=== PATIENT | male | born 1955 | race Caucasian/White ===

== ENCOUNTER 2018-11-04 12:15 | Outpatient (RCR) | payer MEDICARE, SELFPAY ==
--- NOTE | 2018-08-13 16:50 | PT.OPPOC ---
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) Other abnormalities of gait and mobility (08/13/18) Provider Visit Care Team Role Provider Type Win Ho Attending Provider Non-Staff Primary Care Provider Specialty: Psychiatry Address: [address] [place] [address], [place], [place], [facility] Email: Plan Of Care PT-OP-T Assessment and Plan Start: 08/13/18 16:19 Freq: Status: Active Protocol: Document 08/13/18 16:23 [email or web address] (Rec: 08/13/18 16:51 EA [id number]) Physical Therapy Assessment Rehab Potential Rehabilitation Potential Fair Evaluation Complexity Number of Personal Factors/Comorbidities 1-2 Number of Body Systems Impaired 3 Clinical Presentation at Evaluation Evolving Impairments Impairments Activity Tolerance Balance Coordination Gait Other Concerns Fall Risk Yes Goals Four Impairment Impaired TUG (> 10 seconds) Animal Cruelty Investigation Supervisor Goal (LTG) TUG <10 seconds LTG Duration 4 wks Three Impairment Impaired single leg balance Residential Goal (LTG) Patient will perform SLS more than 3 seconds to improve functional gait. LTG Duration 5 wks Two Impairment Impaired balance with multiple falls Residential Goal (LTG) Patient will have no report of fall LTG Duration 4 wks One Impairment Impaired Gait Animal Cruelty Investigation Supervisor Goal (LTG) Patient will ambulate with no AD NBOS LTG Duration 6 wks Assessment Summary Assessment 63 y/o M patient with a referring who is s/p ventricular shunt 09/2016 secondary to normal pressure hydrocephalus. Today patient presented with gait abnormality and standing balance difficulty. Functional assessment reveals moderate risk for fall. MMT and ROM in both UE/LE's are WFL. Sensory and DTR's reveals normal. Coordination tests reveals minimal impairment to both UE/LE's including minimal signs of distance overshooting. Gait with head turning has obvious limitation when turning to the right. Due to abovementioned dysfunction, patient is limited with all activities that require dynamic mobility. In my professional opinion, patient would benefit with skilled PT to improve gait including dynamic standing mobility. Physical Therapy Plan Frequency and Duration Frequency of Treatment 2x/Week Duration of Treatment 12 wks Plan of Care Start Date 08/13/18 Plan of Care End Date 11/05/18 Therapeutic Interventions Therapeutic Interventions Balance Training Coordination Training Gait Training Home Exercise Program Neuromuscular Re-education Patient/Caregiver Education Self-Care/Home Management Therapeutic Exercises Next Visit Focus/Plan Next Note Type Treatment Note Next Visit Plan Begin with coordination exercises, tandem balance exercises, narrow base gait training Plan of Care Dates Plan of Care Start Date 08/13/18 Plan of Care End Date 11/05/18 Please Sign and Return: I have reviewed this Plan of Care and certify that the skilled therapy services above are required to meet the patient?s needs. Physician Signature Date Printed Name and Credentials Clinical Instructor Signature Printed Name and Credentials
--- NOTE | 2018-08-13 16:50 | PT.OIE ---
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) Other abnormalities of gait and mobility (08/13/18) Provider Visit Care Team Role Provider Type Win Ho Attending Provider Non-Staff Primary Care Provider Specialty: Psychiatry Address: [address] [place] [address], [id number] Email: Physical Therapy Initial Evaluation PT-OP-A Visit Information Start: 08/13/18 16:19 Freq: Status: Active Protocol: Document 08/13/18 16:23 EA (Rec: 08/13/18 16:51 EA [id number]) Out-Patient Physical Therapy Visit Information Visit Information Visit Type Initial Evaluation Visit Start Time 12:15 Visit Stop Time 13:00 Total Visit Minutes 40 Visit Number 1 Evaluation Information Evaluation Date 08/13/18 Precautions Precautions Fall risk PT-OP-B Current Condition Start: 08/13/18 16:19 Freq: Status: Active Protocol: Document 08/13/18 16:23 EA (Rec: 08/13/18 16:51 EA [id number]) Current Condition History of Current Condition Onset Date s/p ventricular shunt 2016 due to NPH Current Complaints Gait difficulty due to LOB History of Current Condition Present complaint of gait difficulty and balance started 3 years ago with no previous history of TBI. 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 Prior to current condition, patient lives with his in a single story house with 2 stairs to get in. 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 Patient symptoms of gait disturbance and frequent falls came out gradually and that prompted patient to see his specialist. After ventrular shunt surgery in 09/2016, patient reports his gait is much improved until to this date. 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 Prior Treatments and Tests 2017: Ventricular shunt Future Testing and Treatments Planned Back to Neurologist in three months from today's date Treatment Goals Patient/Caregiver Goals Patient would like to improve his gait. 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 Functional Limitations- Mobility/Gait Limited to < 10 mins due to exhaustion. Ferquent falls with no severe injury Functional Limitations- Work/School Limitations with standing and walking activities Functional Limitations- Recreation/ None identified Hobbies PT-OP-C Subjective Start: 08/13/18 16:19 Freq: Status: Active Protocol: Document 08/13/18 16:23 EA (Rec: 08/13/18 16:51 EA [id number]) OP-PT Subjective Patient Comments Patient Comments Patient would like to improve his gait. Patient Reported Progress Same PT-OP-D Balance Start: 08/13/18 16:19 Freq: Status: Active Protocol: Document 08/13/18 16:55 EA (Rec: 08/13/18 16:59 EA [id number]) OP-PT Balance Assessment Sitting Balance Static Sitting Balance Ability Normal Dynamic Sitting Balance Ability Normal Standing Balance Static Standing Balance Ability Normal Dynamic Standing Balance Ability Good Mora Fall Scale Copyright Permission Abby BOB, Abby RM, Guillermina SJ. Development of a scale to identify the fall- prone patient. Can J Aging 1989;8;366-7. Tyshawn Mora (2009). Preventing patient falls. (2nd ed). Luna: Escobar. PT-OP-E Functional Tests Start: 08/13/18 16:19 Freq: Status: Active Protocol: Document 08/13/18 16:55 EA (Rec: 08/13/18 16:59 EA [id number]) Functional Tests Timed Up and Go (TUG) Score 11 TUG Impairment Rating 1 to <20% Impaired (Score 11) PT-OP-G Mobility & Gait Start: 08/13/18 16:19 Freq: Status: Active Protocol: Document 08/13/18 16:00 EA (Rec: 08/14/18 15:12 EA [id number]) OP Gait Assessment Gait Distance (Feet) 100 Able to Maintain Weight Bearing Status Yes During Gait Assistive Devices Assistive Device None Gait Deviations General Gait Pattern Ataxic Decreased Feet Clearance Wide Based Gait Factors Limiting Gait Function Factors Limiting Gait Function Incoordination Poor Balance PT-OP-H Neuro Start: 08/13/18 16:19 Freq: Status: Active Protocol: Document 08/13/18 16:55 EA (Rec: 08/13/18 16:59 EA [id number]) Coordination Evaluation Upper Extremity Tests Right Finger to Nose Test Minimal Impairment Finger to Therapist's Finger Test Minimal Impairment Alternate Nose to Finger Test Minimal Impairment Finger Opposition Test Minimal Impairment Mass Grasp Test Minimal Impairment Pronation/Supination Test Moderate Impairment Hand Tapping Test Minimal Impairment Left Finger to Nose Test Minimal Impairment Finger to Therapist's Finger Test Minimal Impairment Finger to Finger Test Minimal Impairment Alternate Nose to Finger Test Minimal Impairment Finger Opposition Test Minimal Impairment Mass Grasp Test Minimal Impairment Pronation/Supination Test Severe Impairment Rebound Test of [place] Moderate Impairment Hand Tapping Test Minimal Impairment Pointing and Past Pointing Test Minimal Impairment Lower Extremity Tests Alternate Heel to Knee; Heel to Toe Test Moderate Impairment Heel on Kunz Test Moderate Impairment Foot Tapping Test Minimal Impairment Toe to Examiner's Finger Test Minimal Impairment Drawing a Sutter w/Foot Test Minimal Impairment Lower Extremity Fixation/Position Minimal Impairment Holding Test Deep Tendon Reflex & Clonus Assessment Deep Tendon Reflex Bicep Deep Tendon Reflex 2+ Normal Bilateral Patellar Deep Tendon Reflex 2+ Normal PT-OP-J Posture/Palpation/Skin Start: 08/13/18 16:19 Freq: Status: Active Protocol: Document 08/13/18 16:52 EA (Rec: 08/13/18 16:55 EA [id number]) Posture Evaluation Comments Posture Comments WFL Palpation Assessment Location One Palpation Details Normotonic on both UE/LE's PT-OP-K Range of Motion Start: 08/13/18 16:19 Freq: Status: Active Protocol: Document 08/13/18 16:52 EA (Rec: 08/13/18 16:55 EA [id number]) Hip Goniometric Range of Motion Hip Measured in Degrees Right Active Hip ROM WFL Yes Left Active Hip ROM WFL Yes Knee Goniometric Range of Motion Knee Measured in Degrees Right Knee ROM WFL Yes Left Knee ROM WFL Yes PT-OP-M Strength Start: 08/13/18 16:19 Freq: Status: Active Protocol: Document 08/13/18 16:52 EA (Rec: 08/13/18 16:55 EA [id number]) Hip Strength Hip Manual Muscle Testing Right Flexion (L2) 5 Normal Extension (S1) 5 Normal Abduction 5 Normal Adduction 5 Normal External Rotation 5 Normal Internal Rotation 5 Normal Left Flexion (L2) 5 Normal Extension (S1) 5 Normal Abduction 5 Normal Adduction 5 Normal External Rotation 5 Normal Internal Rotation 5 Normal Knee Strength Knee Manual Muscle Testing Right Flexion (S2) 5 Normal Extension (L3) 5 Normal Left Flexion (S2) 5 Normal Extension (L3) 5 Normal PT-OP-Q Treatments Start: 08/13/18 16:19 Freq: Status: Active Protocol: Document 08/13/18 16:51 EA (Rec: 08/13/18 16:52 EA [id number]) Self-Care/Home Management Treatment Education Patient Education Fall Risk Home Exercise Program Safety PT-OP-T Assessment and Plan Start: 08/13/18 16:19 Freq: Status: Active Protocol: Document 08/13/18 16:23 EA (Rec: 08/13/18 16:51 EA [id number]) Physical Therapy Assessment Rehab Potential Rehabilitation Potential Fair Evaluation Complexity Number of Personal Factors/Comorbidities 1-2 Number of Body Systems Impaired 3 Clinical Presentation at Evaluation Evolving Impairments Impairments Activity Tolerance Balance Coordination Gait Other Concerns Fall Risk Yes Goals Four Impairment Impaired TUG (> 10 seconds) Correction Goal (LTG) TUG <10 seconds LTG Duration 4 wks Three Impairment Impaired single leg balance Correction Goal (LTG) Patient will perform SLS more than 3 seconds to improve functional gait. LTG Duration 5 wks Two Impairment Impaired balance with multiple falls Cleaner Housekeeping Goal (LTG) Patient will have no report of fall LTG Duration 4 wks One Impairment Impaired Gait Correction Goal (LTG) Patient will ambulate with no AD NBOS LTG Duration 6 wks Assessment Summary Assessment 63 y/o M patient with a referring who is s/p ventricular shunt 09/2016 secondary to normal pressure hydrocephalus. Today patient presented with gait abnormality and standing balance difficulty. Functional assessment reveals moderate risk for fall. MMT and ROM in both UE/LE's are WFL. Sensory and DTR's reveals normal. Coordination tests reveals minimal impairment to both UE/LE's including minimal signs of distance overshooting. Gait with head turning has obvious limitation when turning to the right. Due to abovementioned dysfunction, patient is limited with all activities that require dynamic mobility. In my professional opinion, patient would benefit with skilled PT to improve gait including dynamic standing mobility. Physical Therapy Plan Frequency and Duration Frequency of Treatment 2x/Week Duration of Treatment 12 wks Plan of Care Start Date 08/13/18 Plan of Care End Date 11/05/18 Therapeutic Interventions Therapeutic Interventions Balance Training Coordination Training Gait Training Home Exercise Program Neuromuscular Re-education Patient/Caregiver Education Self-Care/Home Management Therapeutic Exercises Next Visit Focus/Plan Next Note Type Treatment Note Next Visit Plan Begin with coordination exercises, tandem balance exercises, narrow base gait training
--- NOTE | 2018-08-15 14:49 | PT.OTN ---
Current Diagnoses Communicating hydrocephalus (08/15/18) Other abnormalities of gait and mobility (08/15/18) Physical Therapy Treatment Note PT-OP-A Visit Information Start: 08/13/18 16:19 Freq: Status: Active Protocol: Document 08/15/18 14:34 SA (Rec: 08/15/18 14:49 SA [id number]) Out-Patient Physical Therapy Visit Information Visit Information Visit Type Treatment Note Visit Start Time 10:00 Visit Stop Time 10:34 Total Visit Minutes 34 Visit Number 2 Number of MICROBIOLOGICAL LABORATORY TECHNICIAN Visits 1 PT-OP-B Current Condition Start: 08/13/18 16:19 Freq: Status: Active Protocol: Document 08/13/18 16:23 EA (Rec: 08/13/18 16:51 EA [id number]) Current Condition History of Current Condition Onset Date s/p ventricular shunt 2016 due to NPH Current Complaints Gait difficulty due to LOB History of Current Condition Present complaint of gait difficulty and balance started 3 years ago with no previous history of TBI. 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 Prior to current condition, patient lives with his in a single story house with 2 stairs to get in. 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 Patient symptoms of gait disturbance and frequent falls came out gradually and that prompted patient to see his specialist. After ventrular shunt surgery in 09/2016, patient reports his gait is much improved until to this date. 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 Prior Treatments and Tests 2017: Ventricular shunt Future Testing and Treatments Planned Back to Neurologist in three months from today's date Treatment Goals Patient/Caregiver Goals Patient would like to improve his gait. 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 Functional Limitations- Mobility/Gait Limited to < 10 mins due to exhaustion. 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 PT-OP-D Balance Start: 08/13/18 16:19 Freq: Status: Active Protocol: Document 08/13/18 16:55 EA (Rec: 08/13/18 16:59 EA [id number]) OP-PT Balance Assessment Sitting Balance Static Sitting Balance Ability Normal Dynamic Sitting Balance Ability Normal Standing Balance Static Standing Balance Ability Normal Dynamic Standing Balance Ability Good Mora Fall Scale Copyright Permission Abby BOB, Abby RM, Guillermina SJ. Development of a scale to identify the fall- prone patient. Can J Aging 1989;8;366-7. Tyshawn Mora (2009). Preventing patient falls. (2nd ed). [place]: Escobar. PT-OP-E Functional Tests Start: 08/13/18 16:19 Freq: Status: Active Protocol: Document 08/13/18 16:55 EA (Rec: 08/13/18 16:59 EA [id number]) Functional Tests Timed Up and Go (TUG) Score 11 TUG Impairment Rating 1 to <20% Impaired (Score 11) PT-OP-G Mobility & Gait Start: 08/13/18 16:19 Freq: Status: Active Protocol: Document 08/13/18 16:00 EA (Rec: 08/14/18 15:12 EA [id number]) OP Gait Assessment Gait Distance (Feet) 100 Able to Maintain Weight Bearing Status Yes During Gait Assistive Devices Assistive Device None Gait Deviations General Gait Pattern Ataxic Decreased Feet Clearance Wide Based Gait Factors Limiting Gait Function Factors Limiting Gait Function Incoordination Poor Balance PT-OP-H Neuro Start: 08/13/18 16:19 Freq: Status: Active Protocol: Document 08/13/18 16:55 EA (Rec: 08/13/18 16:59 EA [id number]) Coordination Evaluation Upper Extremity Tests Right Finger to Nose Test Minimal Impairment Finger to Therapist's Finger Test Minimal Impairment Alternate Nose to Finger Test Minimal Impairment Finger Opposition Test Minimal Impairment Mass Grasp Test Minimal Impairment Pronation/Supination Test Moderate Impairment Hand Tapping Test Minimal Impairment Left Finger to Nose Test Minimal Impairment Finger to Therapist's Finger Test Minimal Impairment Finger to Finger Test Minimal Impairment Alternate Nose to Finger Test Minimal Impairment Finger Opposition Test Minimal Impairment Mass Grasp Test Minimal Impairment Pronation/Supination Test Severe Impairment Rebound Test of Rene Moderate Impairment Hand Tapping Test Minimal Impairment Pointing and Past Pointing Test Minimal Impairment Lower Extremity Tests Alternate Heel to Knee; Heel to Toe Test Moderate Impairment Heel on Kunz Test Moderate Impairment Foot Tapping Test Minimal Impairment Toe to Examiner's Finger Test Minimal Impairment Drawing a Burson w/Foot Test Minimal Impairment Lower Extremity Fixation/Position Minimal Impairment Holding Test Deep Tendon Reflex & Clonus Assessment Deep Tendon Reflex Bicep Deep Tendon Reflex 2+ Normal Bilateral Patellar Deep Tendon Reflex 2+ Normal PT-OP-J Posture/Palpation/Skin Start: 08/13/18 16:19 Freq: Status: Active Protocol: Document 08/13/18 16:52 EA (Rec: 08/13/18 16:55 EA [id number]) Posture Evaluation Comments Posture Comments WFL Palpation Assessment Location One Palpation Details Normotonic on both UE/LE's PT-OP-K Range of Motion Start: 08/13/18 16:19 Freq: Status: Active Protocol: Document 08/13/18 16:52 EA (Rec: 08/13/18 16:55 EA [id number]) Hip Goniometric Range of Motion Hip Measured in Degrees Right Active Hip ROM WFL Yes Left Active Hip ROM WFL Yes Knee Goniometric Range of Motion Knee Measured in Degrees Right Knee ROM WFL Yes Left Knee ROM WFL Yes PT-OP-M Strength Start: 08/13/18 16:19 Freq: Status: Active Protocol: Document 08/13/18 16:52 EA (Rec: 08/13/18 16:55 EA [id number]) Hip Strength Hip Manual Muscle Testing Right Flexion (L2) 5 Normal Extension (S1) 5 Normal Abduction 5 Normal Adduction 5 Normal External Rotation 5 Normal Internal Rotation 5 Normal Left Flexion (L2) 5 Normal Extension (S1) 5 Normal Abduction 5 Normal Adduction 5 Normal External Rotation 5 Normal Internal Rotation 5 Normal Knee Strength Knee Manual Muscle Testing Right Flexion (S2) 5 Normal Extension (L3) 5 Normal Left Flexion (S2) 5 Normal Extension (L3) 5 Normal PT-OP-Q Treatments Start: 08/13/18 16:19 Freq: Status: Active Protocol: Document 08/15/18 14:34 SA (Rec: 03/15/19 14:49 [id number]) Cardio Equipment Recumbent Elliptical (Biodex) Duration (Minutes) 6 Resistance 7 Gym Equipment Shuttle Balance Static/dynamic balance training Details Blue chain Reps/Duration 5 min Comments Staggered stance, tandem stance, UE movements A/P and lateral. Therapeutic Exercises Standing Exercises Squats Side bilateral Reps/Minutes 15x Comments at bar NBOS slow march Side bilateral Equipment Used bar Reps/Minutes 20x each Comments cues for slowing down, keeping stance narrow Toe rasies Side bilateral Reps/Minutes 20x Comments at bar Neuro Re-Education Treatment Balance Activities Tandem walking Surface level Reps/Duration 4 lengths of bar Comments cues for posture and narrowing stance SLS Details at bar Reps/Duration 20-30 x 3 each leg Other Activities Heel strike gait Reps/Duration 6 lengths of bar Comments Focus on WBing through heel, exagerated heel strike, narrow base. PT-OP-T Assessment and Plan Start: 08/13/18 16:19 Freq: Status: Active Protocol: Document 08/15/18 14:34 (Rec: 08/15/18 14:49 [id number]) Physical Therapy Assessment Assessment Summary Assessment Pt very motivated to improve gait and balance, HEP provided today, present for session. Noted pt tends to WB heavily through forefoot with gait, focused on narrowing stance and increasing heel strike with gait pattern. Physical Therapy Plan Next Visit Focus/Plan Next Note Type Treatment Note Next Visit Plan Continue to progress balance/ coordination exercise, LE strengthening and gait training.
--- NOTE | 2018-08-19 12:24 | PT.OTN ---
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) Other abnormalities of gait and mobility (08/19/18) Physical Therapy Treatment Note PT-OP-A Visit Information Start: 08/13/18 16:19 Freq: Status: Active Protocol: Document 08/19/18 12:17 EA (Rec: 08/19/18 12:24 EA [id number]) Out-Patient Physical Therapy Visit Information Visit Information Visit Type Treatment Note Visit Start Time 10:40 Visit Stop Time 11:15 Total Visit Minutes 35 Visit Number 3 Number of [employer] Visits 1 PT-OP-B Current Condition Start: 08/13/18 16:19 Freq: Status: Active Protocol: Document 08/13/18 16:23 EA (Rec: 08/13/18 16:51 EA [id number]) Current Condition History of Current Condition Onset Date s/p ventricular shunt 2016 due to NPH Current Complaints Gait difficulty due to LOB History of Current Condition Present complaint of gait difficulty and balance started 3 years ago with no previous history of TBI. 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 Prior to current condition, patient lives with his in a single story house with 2 stairs to get in. 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 Patient symptoms of gait disturbance and frequent falls came out gradually and that prompted patient to see his specialist. After ventrular shunt surgery in 09/2016, patient reports his gait is much improved until to this date. 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 Prior Treatments and Tests 2017: Ventricular shunt Future Testing and Treatments Planned Back to Neurologist in three months from today's date Treatment Goals Patient/Caregiver Goals Patient would like to improve his gait. 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 Functional Limitations- Mobility/Gait Limited to < 10 mins due to exhaustion. Ferquent falls with no severe injury Functional Limitations- Work/School Limitations with standing and walking activities Functional Limitations- Recreation/ None identified Hobbies PT-OP-C Subjective Start: 08/13/18 16:19 Freq: Status: Active Protocol: Document 08/19/18 12:17 EA (Rec: 08/19/18 12:24 EA [id number]) OP-PT Subjective Patient Comments Patient Comments Pt reports they misred the scheduled appointments and that is why the're late. States he has been complaint with HEP. PT-OP-D Balance Start: 08/13/18 16:19 Freq: Status: Active Protocol: Document 08/13/18 16:55 EA (Rec: 08/13/18 16:59 EA [id number]) OP-PT Balance Assessment Sitting Balance Static Sitting Balance Ability Normal Dynamic Sitting Balance Ability Normal Standing Balance Static Standing Balance Ability Normal Dynamic Standing Balance Ability Good Mora Fall Scale Copyright Permission Abby JM, Abby RM, Guillermina SJ. Development of a scale to identify the fall- prone patient. Can J Aging 1989;8;366-7. Tyshawn Mora (2009). Preventing patient falls. (2nd ed). [place]: [place]. PT-OP-E Functional Tests Start: 08/13/18 16:19 Freq: Status: Active Protocol: Document 08/13/18 16:55 EA (Rec: 08/13/18 16:59 EA [id number]) Functional Tests Timed Up and Go (TUG) Score 11 TUG Impairment Rating 1 to <20% Impaired (Score 11) PT-OP-G Mobility & Gait Start: 08/13/18 16:19 Freq: Status: Active Protocol: Document 08/13/18 16:00 EA (Rec: 08/14/18 15:12 EA [id number]) OP Gait Assessment Gait Distance (Feet) 100 Able to Maintain Weight Bearing Status Yes During Gait Assistive Devices Assistive Device None Gait Deviations General Gait Pattern Ataxic Decreased Feet Clearance Wide Based Gait Factors Limiting Gait Function Factors Limiting Gait Function Incoordination Poor Balance PT-OP-H Neuro Start: 08/13/18 16:19 Freq: Status: Active Protocol: Document 08/13/18 16:55 EA (Rec: 08/13/18 16:59 EA [id number]) Coordination Evaluation Upper Extremity Tests Right Finger to Nose Test Minimal Impairment Finger to Therapist's Finger Test Minimal Impairment Alternate Nose to Finger Test Minimal Impairment Finger Opposition Test Minimal Impairment Mass Grasp Test Minimal Impairment Pronation/Supination Test Moderate Impairment Hand Tapping Test Minimal Impairment Left Finger to Nose Test Minimal Impairment Finger to Therapist's Finger Test Minimal Impairment Finger to Finger Test Minimal Impairment Alternate Nose to Finger Test Minimal Impairment Finger Opposition Test Minimal Impairment Mass Grasp Test Minimal Impairment Pronation/Supination Test Severe Impairment Rebound Test of Rene Moderate Impairment Hand Tapping Test Minimal Impairment Pointing and Past Pointing Test Minimal Impairment Lower Extremity Tests Alternate Heel to Knee; Heel to Toe Test Moderate Impairment Heel on [place] Test Moderate Impairment Foot Tapping Test Minimal Impairment Toe to Examiner's Finger Test Minimal Impairment Drawing a [place] w/Foot Test Minimal Impairment Lower Extremity Fixation/Position Minimal Impairment Holding Test Deep Tendon Reflex & Clonus Assessment Deep Tendon Reflex Bicep Deep Tendon Reflex 2+ Normal Bilateral Patellar Deep Tendon Reflex 2+ Normal PT-OP-J Posture/Palpation/Skin Start: 08/13/18 16:19 Freq: Status: Active Protocol: Document 08/13/18 16:52 EA (Rec: 08/13/18 16:55 EA [id number]) Posture Evaluation Comments Posture Comments WFL Palpation Assessment Location One Palpation Details Normotonic on both UE/LE's PT-OP-K Range of Motion Start: 08/13/18 16:19 Freq: Status: Active Protocol: Document 08/13/18 16:52 EA (Rec: 08/13/18 16:55 EA [id number]) Hip Goniometric Range of Motion Hip Measured in Degrees Right Active Hip ROM WFL Yes Left Active Hip ROM WFL Yes Knee Goniometric Range of Motion Knee Measured in Degrees Right Knee ROM WFL Yes Left Knee ROM WFL Yes PT-OP-M Strength Start: 08/13/18 16:19 Freq: Status: Active Protocol: Document 08/13/18 16:52 EA (Rec: 08/13/18 16:55 EA [id number]) Hip Strength Hip Manual Muscle Testing Right Flexion (L2) 5 Normal Extension (S1) 5 Normal Abduction 5 Normal Adduction 5 Normal External Rotation 5 Normal Internal Rotation 5 Normal Left Flexion (L2) 5 Normal Extension (S1) 5 Normal Abduction 5 Normal Adduction 5 Normal External Rotation 5 Normal Internal Rotation 5 Normal Knee Strength Knee Manual Muscle Testing Right Flexion (S2) 5 Normal Extension (L3) 5 Normal Left Flexion (S2) 5 Normal Extension (L3) 5 Normal PT-OP-Q Treatments Start: 08/13/18 16:19 Freq: Status: Active Protocol: Document 08/19/18 12:17 EA (Rec: 08/19/18 12:24 EA [id number]) Gym Equipment Shuttle Balance Static/dynamic balance training Details red chain Reps/Duration 5 min Comments Staggered stance, tandem stance, UE movements A/P and lateral. Therapeutic Exercises Standing Exercises Squats Standing Exercise Name sit to stand with head turning Side bilateral Reps/Minutes x10 reps x 2 sets Comments at bar NBOS slow march Side bilateral Equipment Used bar Reps/Minutes 20x each Comments cues for slowing down, keeping stance narrow Neuro Re-Education Treatment Balance Activities Tandem walking Surface level and balance beam Reps/Duration 4 lengths of bar Comments cues for posture and narrowing stance SLS Details at bar Reps/Duration 20-30 x 3 each leg Other Activities 1 Details Crosstepping Comments x 4 lengths of 12 ft Heel strike gait Reps/Duration 6 lengths of bar Comments Focus on WBing through heel, exagerated heel strike, narrow base. PT-OP-T Assessment and Plan Start: 08/13/18 16:19 Freq: Status: Active Protocol: Document 08/19/18 12:17 EA (Rec: 08/19/18 12:24 [email or web address] [id number]) Physical Therapy Assessment Assessment Summary Assessment Tolerated treatment well. Cross stepping shows difficulty. Physical Therapy Plan Next Visit Focus/Plan Next Note Type Treatment Note Next Visit Plan Continue to progress balance/ coordination exercise, LE strengthening and gait training.
--- NOTE | 2018-09-11 12:57 | PT.OTN ---
Current Diagnoses Communicating hydrocephalus (09/11/18) Other abnormalities of gait and mobility (09/11/18) Physical Therapy Treatment Note PT-OP-A Visit Information Start: 08/13/18 16:19 Freq: Status: Active Protocol: Document 09/11/18 11:14 EA (Rec: 09/11/18 11:16 EA [id number]) Out-Patient Physical Therapy Visit Information Visit Information Visit Type Treatment Note Visit Start Time 10:30 Visit Stop Time 11:15 Total Visit Minutes 35 Visit Number 4 Number of [employer] MANAGER Visits 1 PT-OP-B Current Condition Start: 08/13/18 16:19 Freq: Status: Active Protocol: Document 08/13/18 16:23 EA (Rec: 08/13/18 16:51 EA [id number]) Current Condition History of Current Condition Onset Date s/p ventricular shunt 2016 due to NPH Current Complaints Gait difficulty due to LOB History of Current Condition Present complaint of gait difficulty and balance started 3 years ago with no previous history of TBI. 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 Prior to current condition, patient lives with his in a single story house with 2 stairs to get in. 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 Patient symptoms of gait disturbance and frequent falls came out gradually and that prompted patient to see his specialist. After ventrular shunt surgery in 09/2016, patient reports his gait is much improved until to this date. 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 Prior Treatments and Tests 2017: Ventricular shunt Future Testing and Treatments Planned Back to Neurologist in three months from today's date Treatment Goals Patient/Caregiver Goals Patient would like to improve his gait. 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 Functional Limitations- Mobility/Gait Limited to < 10 mins due to exhaustion. Ferquent falls with no severe injury Functional Limitations- Work/School Limitations with standing and walking activities Functional Limitations- Recreation/ None identified Hobbies PT-OP-C Subjective Start: 08/13/18 16:19 Freq: Status: Active Protocol: Document 09/11/18 12:50 EA (Rec: 09/11/18 12:57 EA [id number]) OP-PT Subjective Patient Comments Patient Comments Pt reports away for 2 weeks and went to [place]; did a lot of trail walking and had fall once while walking backward and carrying object. Patient Reported Progress Improving PT-OP-D Balance Start: 08/13/18 16:19 Freq: Status: Active Protocol: Document 08/13/18 16:55 EA (Rec: 08/13/18 16:59 EA [id number]) OP-PT Balance Assessment Sitting Balance Static Sitting Balance Ability Normal Dynamic Sitting Balance Ability Normal Standing Balance Static Standing Balance Ability Normal Dynamic Standing Balance Ability Good Mora Fall Scale Copyright Permission Abby BOB, Abby RM, Guillermina SJ. Development of a scale to identify the fall- prone patient. Can J Aging 1989;8;366-7. Tyshawn Mora (2009). Preventing patient falls. (2nd ed). [place]: [place]. PT-OP-E Functional Tests Start: 08/13/18 16:19 Freq: Status: Active Protocol: Document 08/13/18 16:55 EA (Rec: 08/13/18 16:59 EA [id number]) Functional Tests Timed Up and Go (TUG) Score 11 TUG Impairment Rating 1 to <20% Impaired (Score 11) PT-OP-G Mobility & Gait Start: 08/13/18 16:19 Freq: Status: Active Protocol: Document 08/13/18 16:00 EA (Rec: 08/14/18 15:12 EA [id number]) OP Gait Assessment Gait Distance (Feet) 100 Able to Maintain Weight Bearing Status Yes During Gait Assistive Devices Assistive Device None Gait Deviations General Gait Pattern Ataxic Decreased Feet Clearance Wide Based Gait Factors Limiting Gait Function Factors Limiting Gait Function Incoordination Poor Balance PT-OP-H Neuro Start: 08/13/18 16:19 Freq: Status: Active Protocol: Document 08/13/18 16:55 EA (Rec: 08/13/18 16:59 EA [id number]) Coordination Evaluation Upper Extremity Tests Right Finger to Nose Test Minimal Impairment Finger to Therapist's Finger Test Minimal Impairment Alternate Nose to Finger Test Minimal Impairment Finger Opposition Test Minimal Impairment Mass Grasp Test Minimal Impairment Pronation/Supination Test Moderate Impairment Hand Tapping Test Minimal Impairment Left Finger to Nose Test Minimal Impairment Finger to Therapist's Finger Test Minimal Impairment Finger to Finger Test Minimal Impairment Alternate Nose to Finger Test Minimal Impairment Finger Opposition Test Minimal Impairment Mass Grasp Test Minimal Impairment Pronation/Supination Test Severe Impairment Rebound Test of Rene Moderate Impairment Hand Tapping Test Minimal Impairment Pointing and Past Pointing Test Minimal Impairment Lower Extremity Tests Alternate Heel to Knee; Heel to Toe Test Moderate Impairment Heel on [place] Test Moderate Impairment Foot Tapping Test Minimal Impairment Toe to Examiner's Finger Test Minimal Impairment Drawing a [place] w/Foot Test Minimal Impairment Lower Extremity Fixation/Position Minimal Impairment Holding Test Deep Tendon Reflex & Clonus Assessment Deep Tendon Reflex Bicep Deep Tendon Reflex 2+ Normal Bilateral Patellar Deep Tendon Reflex 2+ Normal PT-OP-J Posture/Palpation/Skin Start: 08/13/18 16:19 Freq: Status: Active Protocol: Document 08/13/18 16:52 EA (Rec: 08/13/18 16:55 EA [id number]) Posture Evaluation Comments Posture Comments WFL Palpation Assessment Location One Palpation Details Normotonic on both UE/LE's PT-OP-K Range of Motion Start: 08/13/18 16:19 Freq: Status: Active Protocol: Document 08/13/18 16:52 EA (Rec: 08/13/18 16:55 EA [id number]) Hip Goniometric Range of Motion Hip Measured in Degrees Right Active Hip ROM WFL Yes Left Active Hip ROM WFL Yes Knee Goniometric Range of Motion Knee Measured in Degrees Right Knee ROM WFL Yes Left Knee ROM WFL Yes PT-OP-M Strength Start: 08/13/18 16:19 Freq: Status: Active Protocol: Document 08/13/18 16:52 EA (Rec: 08/13/18 16:55 EA [id number]) Hip Strength Hip Manual Muscle Testing Right Flexion (L2) 5 Normal Extension (S1) 5 Normal Abduction 5 Normal Adduction 5 Normal External Rotation 5 Normal Internal Rotation 5 Normal Left Flexion (L2) 5 Normal Extension (S1) 5 Normal Abduction 5 Normal Adduction 5 Normal External Rotation 5 Normal Internal Rotation 5 Normal Knee Strength Knee Manual Muscle Testing Right Flexion (S2) 5 Normal Extension (L3) 5 Normal Left Flexion (S2) 5 Normal Extension (L3) 5 Normal PT-OP-Q Treatments Start: 08/13/18 16:19 Freq: Status: Active Protocol: Document 09/11/18 12:50 EA (Rec: 09/11/18 12:57 EA [id number]) Cardio Equipment Recumbent Stepper (Sci-Fit) Duration (Minutes) 5 Resistance 2 Seat Position 15 Therapeutic Exercises Standing Exercises 1 Standing Exercise Name Fwd lunges Side bilateral Reps/Minutes x 12 ft x 4 lines NBOS slow march Side bilateral Equipment Used bar Reps/Minutes 20x each Comments cues for slowing down, keeping stance narrow Toe rasies Side bilateral Reps/Minutes 20x Comments at bar Neuro Re-Education Treatment Balance Activities 1 Details Blue foam tandem stanc Reps/Duration x 5 min Comments basketball throwing side to side Tandem walking Details fwd and backward Surface level and balance beam (bem with rail support bwd) Reps/Duration 4 lengths of 15 ft Comments cues for posture and narrowing stance SLS Details at bar Reps/Duration 20-30 x 3 each leg Other Activities 2 Details floor squares in/out stepping fwd Reps/Duration x 6 lengths Comments coordination 1 Details Crosstepping Comments x 4 lengths of 12 ft Heel strike gait Reps/Duration 6 lengths of rails Comments Focus on WBing through heel, exagerated heel strike, narrow base. PT-OP-T Assessment and Plan Start: 08/13/18 16:19 Freq: Status: Active Protocol: Document 09/11/18 12:50 EA (Rec: 09/11/18 12:57 EA [id number]) Physical Therapy Assessment Assessment Summary Assessment Requires CG assist with beam balance and cues with posturing. Tolerated treatment well. Physical Therapy Plan Next Visit Focus/Plan Next Note Type Treatment Note Next Visit Plan Heel toe gait with arm challenges
--- NOTE | 2018-09-15 14:07 | PT.OTN ---
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) Other abnormalities of gait and mobility (09/15/18) Physical Therapy Treatment Note PT-OP-A Visit Information Start: 08/13/18 16:19 Freq: Status: Active Protocol: Document 09/15/18 11:08 EA (Rec: 09/15/18 11:15 EA [id number]) Out-Patient Physical Therapy Visit Information Visit Information Visit Type Treatment Note Visit Start Time 09:45 Visit Stop Time 10:28 Visit Number 5 PT-OP-B Current Condition Start: 08/13/18 16:19 Freq: Status: Active Protocol: Document 08/13/18 16:23 EA (Rec: 08/13/18 16:51 EA [id number]) Current Condition History of Current Condition Onset Date s/p ventricular shunt 2016 due to NPH Current Complaints Gait difficulty due to LOB History of Current Condition Present complaint of gait difficulty and balance started 3 years ago with no previous history of TBI. 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 Prior to current condition, patient lives with his in a single story house with 2 stairs to get in. 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 Patient symptoms of gait disturbance and frequent falls came out gradually and that prompted patient to see his specialist. After ventrular shunt surgery in 09/2016, patient reports his gait is much improved until to this date. 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 Prior Treatments and Tests 2017: Ventricular shunt Future Testing and Treatments Planned Back to Neurologist in three months from today's date Treatment Goals Patient/Caregiver Goals Patient would like to improve his gait. 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 Functional Limitations- Mobility/Gait Limited to < 10 mins due to exhaustion. Ferquent falls with no severe injury Functional Limitations- Work/School Limitations with standing and walking activities Functional Limitations- Recreation/ None identified Hobbies PT-OP-C Subjective Start: 08/13/18 16:19 Freq: Status: Active Protocol: Document 09/15/18 11:08 EA (Rec: 09/15/18 11:15 EA [id number]) OP-PT Subjective Patient Comments Patient Comments Pt reports compliant with HEP and also feels his new shoes ( new bal) improves his walking. Patient Reported Progress Improving PT-OP-D Balance Start: 08/13/18 16:19 Freq: Status: Active Protocol: Document 08/13/18 16:55 EA (Rec: 08/13/18 16:59 EA [id number]) OP-PT Balance Assessment Sitting Balance Static Sitting Balance Ability Normal Dynamic Sitting Balance Ability Normal Standing Balance Static Standing Balance Ability Normal Dynamic Standing Balance Ability Good Mora Fall Scale Copyright Permission Abby BOB, Abby RM, Guillermina SJ. Development of a scale to identify the fall- prone patient. Can J Aging 1989;8;366-7. Tyshawn Mora (2009). Preventing patient falls. (2nd ed). [place]: [place]. PT-OP-E Functional Tests Start: 08/13/18 16:19 Freq: Status: Active Protocol: Document 08/13/18 16:55 EA (Rec: 08/13/18 16:59 EA [id number]) Functional Tests Timed Up and Go (TUG) Score 11 TUG Impairment Rating 1 to <20% Impaired (Score 11) PT-OP-G Mobility & Gait Start: 08/13/18 16:19 Freq: Status: Active Protocol: Document 08/13/18 16:00 EA (Rec: 08/14/18 15:12 EA [id number]) OP Gait Assessment Gait Distance (Feet) 100 Able to Maintain Weight Bearing Status Yes During Gait Assistive Devices Assistive Device None Gait Deviations General Gait Pattern Ataxic Decreased Feet Clearance Wide Based Gait Factors Limiting Gait Function Factors Limiting Gait Function Incoordination Poor Balance PT-OP-H Neuro Start: 08/13/18 16:19 Freq: Status: Active Protocol: Document 08/13/18 16:55 EA (Rec: 08/13/18 16:59 EA [id number]) Coordination Evaluation Upper Extremity Tests Right Finger to Nose Test Minimal Impairment Finger to Therapist's Finger Test Minimal Impairment Alternate Nose to Finger Test Minimal Impairment Finger Opposition Test Minimal Impairment Mass Grasp Test Minimal Impairment Pronation/Supination Test Moderate Impairment Hand Tapping Test Minimal Impairment Left Finger to Nose Test Minimal Impairment Finger to Therapist's Finger Test Minimal Impairment Finger to Finger Test Minimal Impairment Alternate Nose to Finger Test Minimal Impairment Finger Opposition Test Minimal Impairment Mass Grasp Test Minimal Impairment Pronation/Supination Test Severe Impairment Rebound Test of [place] Moderate Impairment Hand Tapping Test Minimal Impairment Pointing and Past Pointing Test Minimal Impairment Lower Extremity Tests Alternate Heel to Knee; Heel to Toe Test Moderate Impairment Heel on [place] Test Moderate Impairment Foot Tapping Test Minimal Impairment Toe to Examiner's Finger Test Minimal Impairment Drawing a [place] w/Foot Test Minimal Impairment Lower Extremity Fixation/Position Minimal Impairment Holding Test Deep Tendon Reflex & Clonus Assessment Deep Tendon Reflex Bicep Deep Tendon Reflex 2+ Normal Bilateral Patellar Deep Tendon Reflex 2+ Normal PT-OP-J Posture/Palpation/Skin Start: 08/13/18 16:19 Freq: Status: Active Protocol: Document 08/13/18 16:52 EA (Rec: 08/13/18 16:55 EA [id number]) Posture Evaluation Comments Posture Comments WFL Palpation Assessment Location One Palpation Details Normotonic on both UE/LE's PT-OP-K Range of Motion Start: 08/13/18 16:19 Freq: Status: Active Protocol: Document 08/13/18 16:52 EA (Rec: 08/13/18 16:55 EA [id number]) Hip Goniometric Range of Motion Hip Measured in Degrees Right Active Hip ROM WFL Yes Left Active Hip ROM WFL Yes Knee Goniometric Range of Motion Knee Measured in Degrees Right Knee ROM WFL Yes Left Knee ROM WFL Yes PT-OP-M Strength Start: 08/13/18 16:19 Freq: Status: Active Protocol: Document 08/13/18 16:52 EA (Rec: 08/13/18 16:55 EA [id number]) Hip Strength Hip Manual Muscle Testing Right Flexion (L2) 5 Normal Extension (S1) 5 Normal Abduction 5 Normal Adduction 5 Normal External Rotation 5 Normal Internal Rotation 5 Normal Left Flexion (L2) 5 Normal Extension (S1) 5 Normal Abduction 5 Normal Adduction 5 Normal External Rotation 5 Normal Internal Rotation 5 Normal Knee Strength Knee Manual Muscle Testing Right Flexion (S2) 5 Normal Extension (L3) 5 Normal Left Flexion (S2) 5 Normal Extension (L3) 5 Normal PT-OP-Q Treatments Start: 08/13/18 16:19 Freq: Status: Active Protocol: Document 09/15/18 11:08 EA (Rec: 09/15/18 11:15 MAMADOU [id number]) Gym Equipment Shuttle Balance Static/dynamic balance training Details red chain Reps/Duration 5 min Comments Staggered stance, tandem stance, UE movements A/P and lateral. Therapeutic Exercises Standing Exercises Squats Standing Exercise Name sit to stand with head turning Side bilateral Reps/Minutes x10 reps x 2 sets Comments at bar Neuro Re-Education Treatment Balance Activities 2 Details Beam: FWD and BWD Reps/Duration x 8 length Comments CGA. BWD patient PRN with rails 1 Details Blue foam tandem stanc Reps/Duration x 5 min Comments basketball throwing side to side Tandem walking Details fwd and backward Surface level and balance beam (bem with rail support bwd) Reps/Duration 4 lengths of 25 ft Comments cues for posture and narrowing stance SLS Details at bar Reps/Duration 20-30 x 3 each leg Other Activities 3 Details Steps linsey heel to toe gait Reps/Duration x 4 lengths Comments hands on pocket 2 Details floor squares in/out stepping fwd Reps/Duration x 6 lengths Comments coordination 1 Details Crosstepping Comments x 4 lengths of 12 ft Heel strike gait Reps/Duration 6 lengths of rails Comments Focus on WBing through heel, exagerated heel strike, narrow base. PT-OP-T Assessment and Plan Start: 08/13/18 16:19 Freq: Status: Active Protocol: Document 09/15/18 11:08 MAMADOU (Rec: 09/15/18 11:15 MAMADOU [id number]) Physical Therapy Assessment Assessment Summary Assessment Improving gait with less ataxic at this time. Pt also learned sitting backward safety. Physical Therapy Plan Next Visit Focus/Plan Next Note Type Treatment Note
--- NOTE | 2018-09-18 10:50 | PT.OTN ---
Current Diagnoses Communicating hydrocephalus (09/18/18) Other abnormalities of gait and mobility (09/18/18) Physical Therapy Treatment Note PT-OP-A Visit Information Start: 08/13/18 16:19 Freq: Status: Active Protocol: Document 09/18/18 10:41 EA (Rec: 09/18/18 10:50 EA [id number]) Out-Patient Physical Therapy Visit Information Visit Information Visit Type Treatment Note Visit Start Time 09:45 Visit Stop Time 10:30 Total Visit Minutes 45 Visit Number 6 PT-OP-B Current Condition Start: 08/13/18 16:19 Freq: Status: Active Protocol: Document 08/13/18 16:23 EA (Rec: 08/13/18 16:51 EA [id number]) Current Condition History of Current Condition Onset Date s/p ventricular shunt 2016 due to NPH Current Complaints Gait difficulty due to LOB History of Current Condition Present complaint of gait difficulty and balance started 3 years ago with no previous history of TBI. 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 Prior to current condition, patient lives with his in a single story house with 2 stairs to get in. 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 Patient symptoms of gait disturbance and frequent falls came out gradually and that prompted patient to see his specialist. After ventrular shunt surgery in 09/2016, patient reports his gait is much improved until to this date. 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 Prior Treatments and Tests 2017: Ventricular shunt Future Testing and Treatments Planned Back to Neurologist in three months from today's date Treatment Goals Patient/Caregiver Goals Patient would like to improve his gait. 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 Functional Limitations- Mobility/Gait Limited to < 10 mins due to exhaustion. Ferquent falls with no severe injury Functional Limitations- Work/School Limitations with standing and walking activities Functional Limitations- Recreation/ None identified Hobbies PT-OP-C Subjective Start: 03/13/19 16:19 Freq: Status: Active Protocol: Document 09/18/18 10:41 EA (Rec: 09/18/18 10:50 EA [id number]) OP-PT Subjective Patient Comments Patient Comments Pt reports no fall; states he has been doing HEP regulalry. Patient Reported Progress Improving PT-OP-D Balance Start: 08/13/18 16:19 Freq: Status: Active Protocol: Document 08/13/18 16:55 EA (Rec: 08/13/18 16:59 EA [id number]) OP-PT Balance Assessment Sitting Balance Static Sitting Balance Ability Normal Dynamic Sitting Balance Ability Normal Standing Balance Static Standing Balance Ability Normal Dynamic Standing Balance Ability Good Mora Fall Scale Copyright Permission Abby BOB, Abby RM, Guillermina SJ. Development of a scale to identify the fall- prone patient. Can J Aging 1989;8;366-7. Tyshawn Mora (2009). Preventing patient falls. (2nd ed). [place]: [place]. PT-OP-E Functional Tests Start: 08/13/18 16:19 Freq: Status: Active Protocol: Document 08/13/18 16:55 EA (Rec: 08/13/18 16:59 EA [id number]) Functional Tests Timed Up and Go (TUG) Score 11 TUG Impairment Rating 1 to <20% Impaired (Score 11) PT-OP-G Mobility & Gait Start: 08/13/18 16:19 Freq: Status: Active Protocol: Document 08/13/18 16:00 EA (Rec: 08/14/18 15:12 EA [id number]) OP Gait Assessment Gait Distance (Feet) 100 Able to Maintain Weight Bearing Status Yes During Gait Assistive Devices Assistive Device None Gait Deviations General Gait Pattern Ataxic Decreased Feet Clearance Wide Based Gait Factors Limiting Gait Function Factors Limiting Gait Function Incoordination Poor Balance PT-OP-H Neuro Start: 08/13/18 16:19 Freq: Status: Active Protocol: Document 08/13/18 16:55 EA (Rec: 08/13/18 16:59 EA [id number]) Coordination Evaluation Upper Extremity Tests Right Finger to Nose Test Minimal Impairment Finger to Therapist's Finger Test Minimal Impairment Alternate Nose to Finger Test Minimal Impairment Finger Opposition Test Minimal Impairment Mass Grasp Test Minimal Impairment Pronation/Supination Test Moderate Impairment Hand Tapping Test Minimal Impairment Left Finger to Nose Test Minimal Impairment Finger to Therapist's Finger Test Minimal Impairment Finger to Finger Test Minimal Impairment Alternate Nose to Finger Test Minimal Impairment Finger Opposition Test Minimal Impairment Mass Grasp Test Minimal Impairment Pronation/Supination Test Severe Impairment Rebound Test of [place] Moderate Impairment Hand Tapping Test Minimal Impairment Pointing and Past Pointing Test Minimal Impairment Lower Extremity Tests Alternate Heel to Knee; Heel to Toe Test Moderate Impairment Heel on [place] Test Moderate Impairment Foot Tapping Test Minimal Impairment Toe to Examiner's Finger Test Minimal Impairment Drawing a [place] w/Foot Test Minimal Impairment Lower Extremity Fixation/Position Minimal Impairment Holding Test Deep Tendon Reflex & Clonus Assessment Deep Tendon Reflex Bicep Deep Tendon Reflex 2+ Normal Bilateral Patellar Deep Tendon Reflex 2+ Normal PT-OP-J Posture/Palpation/Skin Start: 08/13/18 16:19 Freq: Status: Active Protocol: Document 08/13/18 16:52 EA (Rec: 08/13/18 16:55 EA [id number]) Posture Evaluation Comments Posture Comments WFL Palpation Assessment Location One Palpation Details Normotonic on both UE/LE's PT-OP-K Range of Motion Start: 08/13/18 16:19 Freq: Status: Active Protocol: Document 08/13/18 16:52 EA (Rec: 08/13/18 16:55 EA [id number]) Hip Goniometric Range of Motion Hip Measured in Degrees Right Active Hip ROM WFL Yes Left Active Hip ROM WFL Yes Knee Goniometric Range of Motion Knee Measured in Degrees Right Knee ROM WFL Yes Left Knee ROM WFL Yes PT-OP-M Strength Start: 08/13/18 16:19 Freq: Status: Active Protocol: Document 08/13/18 16:52 EA (Rec: 08/13/18 16:55 EA [id number]) Hip Strength Hip Manual Muscle Testing Right Flexion (L2) 5 Normal Extension (S1) 5 Normal Abduction 5 Normal Adduction 5 Normal External Rotation 5 Normal Internal Rotation 5 Normal Left Flexion (L2) 5 Normal Extension (S1) 5 Normal Abduction 5 Normal Adduction 5 Normal External Rotation 5 Normal Internal Rotation 5 Normal Knee Strength Knee Manual Muscle Testing Right Flexion (S2) 5 Normal Extension (L3) 5 Normal Left Flexion (S2) 5 Normal Extension (L3) 5 Normal PT-OP-Q Treatments Start: 08/13/18 16:19 Freq: Status: Active Protocol: Document 09/18/18 10:41 EA (Rec: 09/18/18 10:50 EA [id number]) Gym Equipment Shuttle Balance Static/dynamic balance training Details red chain Reps/Duration 5 min Comments Staggered stance, tandem stance, UE movements A/P and lateral. Therapeutic Exercises Standing Exercises 1 Standing Exercise Name Fwd lunges Side bilateral Reps/Minutes x 12 ft x 4 lines Squats Standing Exercise Name side steps squats w/ ball front pass Reps/Minutes x 12 ft x 4 lines Neuro Re-Education Treatment Balance Activities 2 Details Beam: FWD and BWD Reps/Duration x 8 length Comments CGA. BWD patient PRN with rails 1 Details Blue foam tandem stanc Reps/Duration x 5 min Comments basketball throwing side to side Tandem walking Details fwd and backward Surface level and balance beam (bem with rail support bwd) Reps/Duration 4 lengths of 25 ft Comments cues for posture and narrowing stance Other Activities 4 Details Balance beam fwd steps: cone floor pick ups 3 Details Steps linsey heel to toe gait Reps/Duration x 4 lengths Comments hands on pocket 2 Details floor squares in/out stepping fwd Reps/Duration x 6 lengths Comments coordination 1 Details Crosstepping sideways Comments x 4 lengths of 12 ft Heel strike gait Reps/Duration 6 lengths of rails Comments Focus on WBing through heel, exagerated heel strike, narrow base. PT-OP-T Assessment and Plan Start: 08/13/18 16:19 Freq: Status: Active Protocol: Document 09/18/18 10:41 EA (Rec: 09/18/18 10:50 EA [id number]) Physical Therapy Assessment Assessment Summary Assessment Pt tolerated treatment well. Improves feet coordination with increasing challenge. Physical Therapy Plan Next Visit Focus/Plan Next Note Type Treatment Note Next Visit Plan Cont. with current plan.
--- NOTE | 2018-09-22 12:13 | PT.OTN ---
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) Other abnormalities of gait and mobility (09/22/18) Physical Therapy Treatment Note PT-OP-A Visit Information Start: 08/13/18 16:19 Freq: Status: Active Protocol: Document 09/22/18 12:09 EA (Rec: 09/22/18 12:13 EA [id number]) Out-Patient Physical Therapy Visit Information Visit Information Visit Type Treatment Note Visit Start Time 09:45 Visit Stop Time 10:30 Total Visit Minutes 38 Visit Number 7 PT-OP-B Current Condition Start: 08/13/18 16:19 Freq: Status: Active Protocol: Document 08/13/18 16:23 EA (Rec: 08/13/18 16:51 EA [id number]) Current Condition History of Current Condition Onset Date s/p ventricular shunt 2016 due to NPH Current Complaints Gait difficulty due to LOB History of Current Condition Present complaint of gait difficulty and balance started 3 years ago with no previous history of TBI. 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 Prior to current condition, patient lives with his in a single story house with 2 stairs to get in. 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 Patient symptoms of gait disturbance and frequent falls came out gradually and that prompted patient to see his specialist. After ventrular shunt surgery in 09/2016, patient reports his gait is much improved until to this date. 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 Prior Treatments and Tests 2017: Ventricular shunt Future Testing and Treatments Planned Back to Neurologist in three months from today's date Treatment Goals Patient/Caregiver Goals Patient would like to improve his gait. 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 Functional Limitations- Mobility/Gait Limited to < 10 mins due to exhaustion. Ferquent falls with no severe injury Functional Limitations- Work/School Limitations with standing and walking activities Functional Limitations- Recreation/ None identified Hobbies PT-OP-C Subjective Start: 08/13/18 16:19 Freq: Status: Active Protocol: Document 09/22/18 12:09 EA (Rec: 09/22/18 12:13 EA [id number]) OP-PT Subjective Patient Comments Patient Comments Pt admitted unable to perform HEP well last week. PT-OP-D Balance Start: 08/13/18 16:19 Freq: Status: Active Protocol: Document 08/13/18 16:55 EA (Rec: 08/13/18 16:59 EA [id number]) OP-PT Balance Assessment Sitting Balance Static Sitting Balance Ability Normal Dynamic Sitting Balance Ability Normal Standing Balance Static Standing Balance Ability Normal Dynamic Standing Balance Ability Good Mora Fall Scale Copyright Permission Abby BOB, Abby RM, Guillermina SJ. Development of a scale to identify the fall- prone patient. Can J Aging 1989;8;366-7. Tyshawn Mora (2009). Preventing patient falls. (2nd ed). [place]: [place]. PT-OP-E Functional Tests Start: 08/13/18 16:19 Freq: Status: Active Protocol: Document 08/13/18 16:55 EA (Rec: 08/13/18 16:59 EA [id number]) Functional Tests Timed Up and Go (TUG) Score 11 TUG Impairment Rating 1 to <20% Impaired (Score 11) PT-OP-G Mobility & Gait Start: 08/13/18 16:19 Freq: Status: Active Protocol: Document 08/13/18 16:00 EA (Rec: 08/14/18 15:12 EA [id number]) OP Gait Assessment Gait Distance (Feet) 100 Able to Maintain Weight Bearing Status Yes During Gait Assistive Devices Assistive Device None Gait Deviations General Gait Pattern Ataxic Decreased Feet Clearance Wide Based Gait Factors Limiting Gait Function Factors Limiting Gait Function Incoordination Poor Balance PT-OP-H Neuro Start: 08/13/18 16:19 Freq: Status: Active Protocol: Document 08/13/18 16:55 EA (Rec: 08/13/18 16:59 EA [id number]) Coordination Evaluation Upper Extremity Tests Right Finger to Nose Test Minimal Impairment Finger to Therapist's Finger Test Minimal Impairment Alternate Nose to Finger Test Minimal Impairment Finger Opposition Test Minimal Impairment Mass Grasp Test Minimal Impairment Pronation/Supination Test Moderate Impairment Hand Tapping Test Minimal Impairment Left Finger to Nose Test Minimal Impairment Finger to Therapist's Finger Test Minimal Impairment Finger to Finger Test Minimal Impairment Alternate Nose to Finger Test Minimal Impairment Finger Opposition Test Minimal Impairment Mass Grasp Test Minimal Impairment Pronation/Supination Test Severe Impairment Rebound Test of [place] Moderate Impairment Hand Tapping Test Minimal Impairment Pointing and Past Pointing Test Minimal Impairment Lower Extremity Tests Alternate Heel to Knee; Heel to Toe Test Moderate Impairment Heel on [place] Test Moderate Impairment Foot Tapping Test Minimal Impairment Toe to Examiner's Finger Test Minimal Impairment Drawing a [place] w/Foot Test Minimal Impairment Lower Extremity Fixation/Position Minimal Impairment Holding Test Deep Tendon Reflex & Clonus Assessment Deep Tendon Reflex Bicep Deep Tendon Reflex 2+ Normal Bilateral Patellar Deep Tendon Reflex 2+ Normal PT-OP-J Posture/Palpation/Skin Start: 08/13/18 16:19 Freq: Status: Active Protocol: Document 08/13/18 16:52 EA (Rec: 08/13/18 16:55 EA [id number]) Posture Evaluation Comments Posture Comments WFL Palpation Assessment Location One Palpation Details Normotonic on both UE/LE's PT-OP-K Range of Motion Start: 08/13/18 16:19 Freq: Status: Active Protocol: Document 08/13/18 16:52 EA (Rec: 08/13/18 16:55 EA [id number]) Hip Goniometric Range of Motion Hip Measured in Degrees Right Active Hip ROM WFL Yes Left Active Hip ROM WFL Yes Knee Goniometric Range of Motion Knee Measured in Degrees Right Knee ROM WFL Yes Left Knee ROM WFL Yes PT-OP-M Strength Start: 08/13/18 16:19 Freq: Status: Active Protocol: Document 08/13/18 16:52 EA (Rec: 08/13/18 16:55 EA [id number]) Hip Strength Hip Manual Muscle Testing Right Flexion (L2) 5 Normal Extension (S1) 5 Normal Abduction 5 Normal Adduction 5 Normal External Rotation 5 Normal Internal Rotation 5 Normal Left Flexion (L2) 5 Normal Extension (S1) 5 Normal Abduction 5 Normal Adduction 5 Normal External Rotation 5 Normal Internal Rotation 5 Normal Knee Strength Knee Manual Muscle Testing Right Flexion (S2) 5 Normal Extension (L3) 5 Normal Left Flexion (S2) 5 Normal Extension (L3) 5 Normal PT-OP-Q Treatments Start: 08/13/18 16:19 Freq: Status: Active Protocol: Document 09/22/18 12:09 EA (Rec: 09/22/18 12:13 EA [id number]) Gym Equipment Shuttle Balance Static/dynamic balance training Details red chain Reps/Duration 7 min Comments Staggered stance, tandem stance, UE movements A/P and lateral. Therapeutic Exercises Standing Exercises 1 Standing Exercise Name Fwd lunges Side bilateral Reps/Minutes x 12 ft x 4 lines Squats Standing Exercise Name side steps squats w/ ball front pass Reps/Minutes x 12 ft x 4 lines Neuro Re-Education Treatment Balance Activities 2 Details Beam: FWD and BWD Reps/Duration x 8 length Comments CGA. BWD patient PRN with rails Tandem walking Details fwd and backward Surface level and balance beam (bem with rail support bwd) Reps/Duration 4 lengths of 25 ft Comments cues for posture and narrowing stance SLS Details at bar Reps/Duration 20-30 x 3 each leg Other Activities 4 Details Balance beam fwd steps: cone floor pick ups 3 Details Steps linsey heel to toe gait Reps/Duration x 4 lengths Comments hands on pocket 2 Details floor squares in/out stepping fwd Reps/Duration x 6 lengths Comments coordination 1 Details Crosstepping sideways Comments x 4 lengths of 12 ft Heel strike gait Reps/Duration 6 lengths of rails Comments Focus on WBing through heel, exagerated heel strike, narrow base. PT-OP-T Assessment and Plan Start: 08/13/18 16:19 Freq: Status: Active Protocol: Document 09/22/18 12:09 [email or web address] (Rec: 09/22/18 12:13 EA [id number]) Physical Therapy Assessment Assessment Summary Assessment Frequent rests improves patient performance. Consistent cues to not use arm for balance is required to improved balance. Physical Therapy Plan Next Visit Focus/Plan Next Note Type Treatment Note Next Visit Plan Cont. with current plan.
--- NOTE | 2018-09-25 12:09 | PT.OTN ---
Current Diagnoses Communicating hydrocephalus (09/25/18) Other abnormalities of gait and mobility (09/25/18) Physical Therapy Treatment Note PT-OP-A Visit Information Start: 08/13/18 16:19 Freq: Status: Active Protocol: Document 09/25/18 11:12 EA (Rec: 09/25/18 11:15 EA [id number]) Out-Patient Physical Therapy Visit Information Visit Information Visit Type Treatment Note Visit Start Time 09:45 Visit Stop Time 10:30 Total Visit Minutes 40 Visit Number 8 PT-OP-B Current Condition Start: 08/13/18 16:19 Freq: Status: Active Protocol: Document 08/13/18 16:23 EA (Rec: 08/13/18 16:51 EA [id number]) Current Condition History of Current Condition Onset Date s/p ventricular shunt 2016 due to NPH Current Complaints Gait difficulty due to LOB History of Current Condition Present complaint of gait difficulty and balance started 3 years ago with no previous history of TBI. 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 Prior to current condition, patient lives with his in a single story house with 2 stairs to get in. 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 Patient symptoms of gait disturbance and frequent falls came out gradually and that prompted patient to see his specialist. After ventrular shunt surgery in 09/2016, patient reports his gait is much improved until to this date. 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 Prior Treatments and Tests 2017: Ventricular shunt Future Testing and Treatments Planned Back to Neurologist in three months from today's date Treatment Goals Patient/Caregiver Goals Patient would like to improve his gait. 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 Functional Limitations- Mobility/Gait Limited to < 10 mins due to exhaustion. Ferquent falls with no severe injury Functional Limitations- Work/School Limitations with standing and walking activities Functional Limitations- Recreation/ None identified Hobbies PT-OP-C Subjective Start: 03/13/19 16:19 Freq: Status: Active Protocol: Document 09/25/18 11:12 EA (Rec: 09/25/18 11:15 EA [id number]) OP-PT Subjective Patient Comments Patient Comments Pt reports that he has been trying to peroform HEP at home ; denies fall PT-OP-D Balance Start: 08/13/18 16:19 Freq: Status: Active Protocol: Document 08/13/18 16:55 EA (Rec: 08/13/18 16:59 EA [id number]) OP-PT Balance Assessment Sitting Balance Static Sitting Balance Ability Normal Dynamic Sitting Balance Ability Normal Standing Balance Static Standing Balance Ability Normal Dynamic Standing Balance Ability Good Mora Fall Scale Copyright Permission Abby BOB, Abby RM, Guillermina SJ. Development of a scale to identify the fall- prone patient. Can J Aging 1989;8;366-7. Tyshawn Mora (2009). Preventing patient falls. (2nd ed). [place]: [place]. PT-OP-E Functional Tests Start: 08/13/18 16:19 Freq: Status: Active Protocol: Document 08/13/18 16:55 EA (Rec: 08/13/18 16:59 EA [id number]) Functional Tests Timed Up and Go (TUG) Score 11 TUG Impairment Rating 1 to <20% Impaired (Score 11) PT-OP-G Mobility & Gait Start: 08/13/18 16:19 Freq: Status: Active Protocol: Document 08/13/18 16:00 EA (Rec: 08/14/18 15:12 EA [id number]) OP Gait Assessment Gait Distance (Feet) 100 Able to Maintain Weight Bearing Status Yes During Gait Assistive Devices Assistive Device None Gait Deviations General Gait Pattern Ataxic Decreased Feet Clearance Wide Based Gait Factors Limiting Gait Function Factors Limiting Gait Function Incoordination Poor Balance PT-OP-H Neuro Start: 08/13/18 16:19 Freq: Status: Active Protocol: Document 08/13/18 16:55 EA (Rec: 08/13/18 16:59 EA [id number]) Coordination Evaluation Upper Extremity Tests Right Finger to Nose Test Minimal Impairment Finger to Therapist's Finger Test Minimal Impairment Alternate Nose to Finger Test Minimal Impairment Finger Opposition Test Minimal Impairment Mass Grasp Test Minimal Impairment Pronation/Supination Test Moderate Impairment Hand Tapping Test Minimal Impairment Left Finger to Nose Test Minimal Impairment Finger to Therapist's Finger Test Minimal Impairment Finger to Finger Test Minimal Impairment Alternate Nose to Finger Test Minimal Impairment Finger Opposition Test Minimal Impairment Mass Grasp Test Minimal Impairment Pronation/Supination Test Severe Impairment Rebound Test of [place] Moderate Impairment Hand Tapping Test Minimal Impairment Pointing and Past Pointing Test Minimal Impairment Lower Extremity Tests Alternate Heel to Knee; Heel to Toe Test Moderate Impairment Heel on [place] Test Moderate Impairment Foot Tapping Test Minimal Impairment Toe to Examiner's Finger Test Minimal Impairment Drawing a [place] w/Foot Test Minimal Impairment Lower Extremity Fixation/Position Minimal Impairment Holding Test Deep Tendon Reflex & Clonus Assessment Deep Tendon Reflex Bicep Deep Tendon Reflex 2+ Normal Bilateral Patellar Deep Tendon Reflex 2+ Normal PT-OP-J Posture/Palpation/Skin Start: 08/13/18 16:19 Freq: Status: Active Protocol: Document 08/13/18 16:52 EA (Rec: 08/13/18 16:55 EA [id number]) Posture Evaluation Comments Posture Comments WFL Palpation Assessment Location One Palpation Details Normotonic on both UE/LE's PT-OP-K Range of Motion Start: 08/13/18 16:19 Freq: Status: Active Protocol: Document 08/13/18 16:52 EA (Rec: 08/13/18 16:55 EA [id number]) Hip Goniometric Range of Motion Hip Measured in Degrees Right Active Hip ROM WFL Yes Left Active Hip ROM WFL Yes Knee Goniometric Range of Motion Knee Measured in Degrees Right Knee ROM WFL Yes Left Knee ROM WFL Yes PT-OP-M Strength Start: 08/13/18 16:19 Freq: Status: Active Protocol: Document 08/13/18 16:52 EA (Rec: 08/13/18 16:55 EA [id number]) Hip Strength Hip Manual Muscle Testing Right Flexion (L2) 5 Normal Extension (S1) 5 Normal Abduction 5 Normal Adduction 5 Normal External Rotation 5 Normal Internal Rotation 5 Normal Left Flexion (L2) 5 Normal Extension (S1) 5 Normal Abduction 5 Normal Adduction 5 Normal External Rotation 5 Normal Internal Rotation 5 Normal Knee Strength Knee Manual Muscle Testing Right Flexion (S2) 5 Normal Extension (L3) 5 Normal Left Flexion (S2) 5 Normal Extension (L3) 5 Normal PT-OP-Q Treatments Start: 08/13/18 16:19 Freq: Status: Active Protocol: Document 09/25/18 11:12 EA (Rec: 09/25/18 11:15 EA [id number]) Therapeutic Exercises Standing Exercises 1 Standing Exercise Name Fwd lunges Side bilateral Reps/Minutes x 12 ft x 4 lines Squats Standing Exercise Name side steps squats w/ ball front pass Resistance GTB Reps/Minutes x 12 ft x 4 lines Neuro Re-Education Treatment Balance Activities 2 Details Beam: FWD and BWD Reps/Duration x 8 length Comments CGA. BWD patient PRN with rails 1 Details Blue foam tandem stanc Reps/Duration x 5 min Comments balloon toss SLS Details at bar Reps/Duration 20-30 x 3 each leg Other Activities 4 Details Balance beam fwd steps: cone floor pick ups 3 Details Steps linsey heel to toe gait Reps/Duration x 4 lengths Comments hands on pocket 2 Details floor squares in/out stepping fwd Reps/Duration x 6 lengths Comments coordination 1 Details Crosstepping sideways Comments x 4 lengths of 12 ft Heel strike gait Reps/Duration 6 lengths of rails Comments Focus on WBing through heel, exagerated heel strike, narrow base. PT-OP-T Assessment and Plan Start: 08/13/18 16:19 Freq: Status: Active Protocol: Document 09/25/18 11:12 EA (Rec: 09/25/18 11:15 EA [id number]) Physical Therapy Assessment Assessment Summary Assessment Improved SLS noted at this time. Patient is progressing well. Physical Therapy Plan Next Visit Focus/Plan Next Note Type Treatment Note Next Visit Plan Cont. with current plan.
--- NOTE | 2018-09-30 15:24 | PT.OTN ---
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) Other abnormalities of gait and mobility (09/30/18) Physical Therapy Treatment Note PT-OP-A Visit Information Start: 08/13/18 16:19 Freq: Status: Active Protocol: Document 09/30/18 15:16 EA (Rec: 09/30/18 15:24 EA [id number]) Out-Patient Physical Therapy Visit Information Visit Information Visit Type Treatment Note Visit Start Time 14:30 Visit Stop Time 15:15 Total Visit Minutes 40 Visit Number 9 PT-OP-B Current Condition Start: 08/13/18 16:19 Freq: Status: Active Protocol: Document 08/13/18 16:23 EA (Rec: 08/13/18 16:51 EA [id number]) Current Condition History of Current Condition Onset Date s/p ventricular shunt 2016 due to NPH Current Complaints Gait difficulty due to LOB History of Current Condition Present complaint of gait difficulty and balance started 3 years ago with no previous history of TBI. 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 Prior to current condition, patient lives with his in a single story house with 2 stairs to get in. 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 Patient symptoms of gait disturbance and frequent falls came out gradually and that prompted patient to see his specialist. After ventrular shunt surgery in 09/2016, patient reports his gait is much improved until to this date. 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 Prior Treatments and Tests 2017: Ventricular shunt Future Testing and Treatments Planned Back to Neurologist in three months from today's date Treatment Goals Patient/Caregiver Goals Patient would like to improve his gait. 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 Functional Limitations- Mobility/Gait Limited to < 10 mins due to exhaustion. Ferquent falls with no severe injury Functional Limitations- Work/School Limitations with standing and walking activities Functional Limitations- Recreation/ None identified Hobbies PT-OP-C Subjective Start: 03/13/19 16:19 Freq: Status: Active Protocol: Document 09/30/18 15:16 EA (Rec: 09/30/18 15:24 EA [id number]) OP-PT Subjective Patient Comments Patient Comments Pt admitted unable to perform HEP due to taking of her sick mother. PT-OP-D Balance Start: 08/13/18 16:19 Freq: Status: Active Protocol: Document 08/13/18 16:55 EA (Rec: 08/13/18 16:59 EA [id number]) OP-PT Balance Assessment Sitting Balance Static Sitting Balance Ability Normal Dynamic Sitting Balance Ability Normal Standing Balance Static Standing Balance Ability Normal Dynamic Standing Balance Ability Good Mora Fall Scale Copyright Permission Abby JM, Abby RM, Guillermina SJ. Development of a scale to identify the fall- prone patient. Can J Aging 1989;8;366-7. Tyshawn Mora (2009). Preventing patient falls. (2nd ed). Bartholomew: Escobar. PT-OP-E Functional Tests Start: 08/13/18 16:19 Freq: Status: Active Protocol: Document 08/13/18 16:55 EA (Rec: 08/13/18 16:59 EA [id number]) Functional Tests Timed Up and Go (TUG) Score 11 TUG Impairment Rating 1 to <20% Impaired (Score 11) PT-OP-G Mobility & Gait Start: 08/13/18 16:19 Freq: Status: Active Protocol: Document 08/13/18 16:00 EA (Rec: 08/14/18 15:12 EA [id number]) OP Gait Assessment Gait Distance (Feet) 100 Able to Maintain Weight Bearing Status Yes During Gait Assistive Devices Assistive Device None Gait Deviations General Gait Pattern Ataxic Decreased Feet Clearance Wide Based Gait Factors Limiting Gait Function Factors Limiting Gait Function Incoordination Poor Balance PT-OP-H Neuro Start: 08/13/18 16:19 Freq: Status: Active Protocol: Document 08/13/18 16:55 EA (Rec: 08/13/18 16:59 EA [id number]) Coordination Evaluation Upper Extremity Tests Right Finger to Nose Test Minimal Impairment Finger to Therapist's Finger Test Minimal Impairment Alternate Nose to Finger Test Minimal Impairment Finger Opposition Test Minimal Impairment Mass Grasp Test Minimal Impairment Pronation/Supination Test Moderate Impairment Hand Tapping Test Minimal Impairment Left Finger to Nose Test Minimal Impairment Finger to Therapist's Finger Test Minimal Impairment Finger to Finger Test Minimal Impairment Alternate Nose to Finger Test Minimal Impairment Finger Opposition Test Minimal Impairment Mass Grasp Test Minimal Impairment Pronation/Supination Test Severe Impairment Rebound Test of [place] Moderate Impairment Hand Tapping Test Minimal Impairment Pointing and Past Pointing Test Minimal Impairment Lower Extremity Tests Alternate Heel to Knee; Heel to Toe Test Moderate Impairment Heel on [place] Test Moderate Impairment Foot Tapping Test Minimal Impairment Toe to Examiner's Finger Test Minimal Impairment Drawing a [place] w/Foot Test Minimal Impairment Lower Extremity Fixation/Position Minimal Impairment Holding Test Deep Tendon Reflex & Clonus Assessment Deep Tendon Reflex Bicep Deep Tendon Reflex 2+ Normal Bilateral Patellar Deep Tendon Reflex 2+ Normal PT-OP-J Posture/Palpation/Skin Start: 08/13/18 16:19 Freq: Status: Active Protocol: Document 08/13/18 16:52 EA (Rec: 08/13/18 16:55 EA [id number]) Posture Evaluation Comments Posture Comments WFL Palpation Assessment Location One Palpation Details Normotonic on both UE/LE's PT-OP-K Range of Motion Start: 08/13/18 16:19 Freq: Status: Active Protocol: Document 08/13/18 16:52 EA (Rec: 08/13/18 16:55 EA [id number]) Hip Goniometric Range of Motion Hip Measured in Degrees Right Active Hip ROM WFL Yes Left Active Hip ROM WFL Yes Knee Goniometric Range of Motion Knee Measured in Degrees Right Knee ROM WFL Yes Left Knee ROM WFL Yes PT-OP-M Strength Start: 08/13/18 16:19 Freq: Status: Active Protocol: Document 08/13/18 16:52 EA (Rec: 08/13/18 16:55 EA [id number]) Hip Strength Hip Manual Muscle Testing Right Flexion (L2) 5 Normal Extension (S1) 5 Normal Abduction 5 Normal Adduction 5 Normal External Rotation 5 Normal Internal Rotation 5 Normal Left Flexion (L2) 5 Normal Extension (S1) 5 Normal Abduction 5 Normal Adduction 5 Normal External Rotation 5 Normal Internal Rotation 5 Normal Knee Strength Knee Manual Muscle Testing Right Flexion (S2) 5 Normal Extension (L3) 5 Normal Left Flexion (S2) 5 Normal Extension (L3) 5 Normal PT-OP-Q Treatments Start: 08/13/18 16:19 Freq: Status: Active Protocol: Document 09/30/18 15:16 EA (Rec: 09/30/18 15:24 EA [id number]) Therapeutic Exercises Standing Exercises 1 Standing Exercise Name Fwd lunges Side bilateral Reps/Minutes x 12 ft x 4 lines Squats Standing Exercise Name side steps squats w/ ball front pass Resistance GTB Reps/Minutes x 12 ft x 2 lines Neuro Re-Education Treatment Balance Activities 1 Details Blue foam tandem stanc Reps/Duration x 5 min Comments balloon toss Tandem walking Details fwd and backward Surface level and balance beam (bem with rail support bwd) Reps/Duration 4 lengths of 25 ft Comments cues for posture and narrowing stance SLS Details at bar Reps/Duration 20-30 x 3 each leg Comments Flat firm to blue foam Other Activities 4 Details Balance beam fwd steps: cone floor pick ups 3 Details Steps linsey heel to toe gait Reps/Duration x 4 lengths Comments hands on pocket 1 Details Crosstepping sideways Comments x 4 lengths of 12 ft Heel strike gait Reps/Duration 6 lengths of rails Comments Focus on WBing through heel, exagerated heel strike, narrow base. PT-OP-T Assessment and Plan Start: 08/13/18 16:19 Freq: Status: Active Protocol: Document 09/30/18 15:16 [email or web address] (Rec: 09/30/18 15:24 EA [id number]) Physical Therapy Assessment Assessment Summary Assessment Patient still requires CGA with beam balance activities. Heel to gait improves with hands on the pocket and looking fwd. Physical Therapy Plan Next Visit Focus/Plan Next Note Type Treatment Note Next Visit Plan Cont. with current plan.
--- NOTE | 2018-10-13 10:31 | PT.OTN ---
Current Diagnoses Communicating hydrocephalus (10/13/18) Other abnormalities of gait and mobility (10/13/18) Physical Therapy Treatment Note PT-OP-A Visit Information Start: 08/13/18 16:19 Freq: Status: Active Protocol: Document 10/13/18 09:45 DCW (Rec: 10/13/18 10:31 DCW [id number]) Out-Patient Physical Therapy Visit Information Visit Information Visit Type Treatment Note Visit Start Time 09:45 Visit Stop Time 10:30 Total Visit Minutes 45 Visit Number 10 PT-OP-B Current Condition Start: 08/13/18 16:19 Freq: Status: Active Protocol: Document 08/13/18 16:23 EA (Rec: 08/13/18 16:51 EA [id number]) Current Condition History of Current Condition Onset Date s/p ventricular shunt 2016 due to NPH Current Complaints Gait difficulty due to LOB History of Current Condition Present complaint of gait difficulty and balance started 3 years ago with no previous history of TBI. 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 Prior to current condition, patient lives with his in a single story house with 2 stairs to get in. 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 Patient symptoms of gait disturbance and frequent falls came out gradually and that prompted patient to see his specialist. After ventrular shunt surgery in 09/2016, patient reports his gait is much improved until to this date. 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 Prior Treatments and Tests 2017: Ventricular shunt Future Testing and Treatments Planned Back to Neurologist in three months from today's date Treatment Goals Patient/Caregiver Goals Patient would like to improve his gait. 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 Functional Limitations- Mobility/Gait Limited to < 10 mins due to exhaustion. Ferquent falls with no severe injury Functional Limitations- Work/School Limitations with standing and walking activities Functional Limitations- Recreation/ None identified Hobbies PT-OP-C Subjective Start: 08/13/18 16:19 Freq: Status: Active Protocol: Document 10/13/18 09:45 DCW (Rec: 10/13/18 10:31 DCW [id number]) OP-PT Subjective Patient Comments Patient Comments Pt reports he is here to work hard and get better. PT-OP-D Balance Start: 08/13/18 16:19 Freq: Status: Active Protocol: Document 08/13/18 16:55 EA (Rec: 08/13/18 16:59 EA [id number]) OP-PT Balance Assessment Sitting Balance Static Sitting Balance Ability Normal Dynamic Sitting Balance Ability Normal Standing Balance Static Standing Balance Ability Normal Dynamic Standing Balance Ability Good Mora Fall Scale Copyright Permission Abby BOB, Abby RM, Guillermina SJ. Development of a scale to identify the fall- prone patient. Can J Aging 1989;8;366-7. Tyshawn Mora (2009). Preventing patient falls. (2nd ed). Wilkinson: Escobar. PT-OP-E Functional Tests Start: 08/13/18 16:19 Freq: Status: Active Protocol: Document 08/13/18 16:55 EA (Rec: 08/13/18 16:59 EA [id number]) Functional Tests Timed Up and Go (TUG) Score 11 TUG Impairment Rating 1 to <20% Impaired (Score 11) PT-OP-G Mobility & Gait Start: 08/13/18 16:19 Freq: Status: Active Protocol: Document 08/13/18 16:00 EA (Rec: 08/14/18 15:12 EA [id number]) OP Gait Assessment Gait Distance (Feet) 100 Able to Maintain Weight Bearing Status Yes During Gait Assistive Devices Assistive Device None Gait Deviations General Gait Pattern Ataxic Decreased Feet Clearance Wide Based Gait Factors Limiting Gait Function Factors Limiting Gait Function Incoordination Poor Balance PT-OP-H Neuro Start: 08/13/18 16:19 Freq: Status: Active Protocol: Document 08/13/18 16:55 EA (Rec: 08/13/18 16:59 EA [id number]) Coordination Evaluation Upper Extremity Tests Right Finger to Nose Test Minimal Impairment Finger to Therapist's Finger Test Minimal Impairment Alternate Nose to Finger Test Minimal Impairment Finger Opposition Test Minimal Impairment Mass Grasp Test Minimal Impairment Pronation/Supination Test Moderate Impairment Hand Tapping Test Minimal Impairment Left Finger to Nose Test Minimal Impairment Finger to Therapist's Finger Test Minimal Impairment Finger to Finger Test Minimal Impairment Alternate Nose to Finger Test Minimal Impairment Finger Opposition Test Minimal Impairment Mass Grasp Test Minimal Impairment Pronation/Supination Test Severe Impairment Rebound Test of [place] Moderate Impairment Hand Tapping Test Minimal Impairment Pointing and Past Pointing Test Minimal Impairment Lower Extremity Tests Alternate Heel to Knee; Heel to Toe Test Moderate Impairment Heel on [place] Test Moderate Impairment Foot Tapping Test Minimal Impairment Toe to Examiner's Finger Test Minimal Impairment Drawing a [place] w/Foot Test Minimal Impairment Lower Extremity Fixation/Position Minimal Impairment Holding Test Deep Tendon Reflex & Clonus Assessment Deep Tendon Reflex Bicep Deep Tendon Reflex 2+ Normal Bilateral Patellar Deep Tendon Reflex 2+ Normal PT-OP-J Posture/Palpation/Skin Start: 08/13/18 16:19 Freq: Status: Active Protocol: Document 08/13/18 16:52 EA (Rec: 08/13/18 16:55 EA [id number]) Posture Evaluation Comments Posture Comments WFL Palpation Assessment Location One Palpation Details Normotonic on both UE/LE's PT-OP-K Range of Motion Start: 08/13/18 16:19 Freq: Status: Active Protocol: Document 08/13/18 16:52 EA (Rec: 08/13/18 16:55 EA [id number]) Hip Goniometric Range of Motion Hip Measured in Degrees Right Active Hip ROM WFL Yes Left Active Hip ROM WFL Yes Knee Goniometric Range of Motion Knee Measured in Degrees Right Knee ROM WFL Yes Left Knee ROM WFL Yes PT-OP-M Strength Start: 08/13/18 16:19 Freq: Status: Active Protocol: Document 08/13/18 16:52 EA (Rec: 08/13/18 16:55 EA [id number]) Hip Strength Hip Manual Muscle Testing Right Flexion (L2) 5 Normal Extension (S1) 5 Normal Abduction 5 Normal Adduction 5 Normal External Rotation 5 Normal Internal Rotation 5 Normal Left Flexion (L2) 5 Normal Extension (S1) 5 Normal Abduction 5 Normal Adduction 5 Normal External Rotation 5 Normal Internal Rotation 5 Normal Knee Strength Knee Manual Muscle Testing Right Flexion (S2) 5 Normal Extension (L3) 5 Normal Left Flexion (S2) 5 Normal Extension (L3) 5 Normal PT-OP-Q Treatments Start: 08/13/18 16:19 Freq: Status: Active Protocol: Document 10/13/18 09:45 DCW (Rec: 10/13/18 10:31 [facility] [id number]) Gym Equipment Shuttle Balance Static/dynamic balance training Details red chain Reps/Duration 12 min Comments Wide ANA (EO/EC, Ball toss), Staggered stance, lateral weight shift. Therapeutic Exercises Standing Exercises 1 Standing Exercise Name Fwd lunges Side bilateral Reps/Minutes x 12 ft x 4 lines Squats Standing Exercise Name side steps squats w/ ball front pass Resistance GTB Reps/Minutes x 12 ft x 2 lines Neuro Re-Education Treatment Balance Activities 2 Details Beam: FWD and BWD Reps/Duration x 8 length Comments CGA. BWD patient PRN with rails 1 Details Blue foam tandem stanc Reps/Duration x 5 min Other Activities 4 Details Balance beam fwd steps: cone floor pick ups 1 Details Crosstepping sideways Comments x 4 lengths of 12 ft PT-OP-T Assessment and Plan Start: 08/13/18 16:19 Freq: Status: Active Protocol: Document 10/13/18 09:45 DCW (Rec: 10/13/18 10:31 [facility] [id number]) Physical Therapy Assessment Goals Four Impairment Impaired TUG (> 10 seconds) Players Assistant Goal (LTG) TUG <10 seconds LTG Duration 4 wks Three Impairment Impaired single leg balance Fci Goal (LTG) Patient will perform SLS more than 3 seconds to improve functional gait. LTG Duration 5 wks Two Impairment Impaired balance with multiple falls Players Assistant Goal (LTG) Patient will have no report of fall LTG Duration 4 wks One Impairment Impaired Gait Players Assistant Goal (LTG) Patient will ambulate with no AD NBOS LTG Duration 6 wks Assessment Summary Assessment Pt required CGA/Min Ax1 to maintain balance for all activities on balance beam. Physical Therapy Plan Next Visit Focus/Plan Next Note Type Treatment Note Next Visit Plan Cont. with current plan.
--- NOTE | 2018-10-15 10:29 | PT.OTN ---
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) Other abnormalities of gait and mobility (10/15/18) Physical Therapy Treatment Note PT-OP-A Visit Information Start: 08/13/18 16:19 Freq: Status: Active Protocol: Document 10/15/18 09:45 DCW (Rec: 10/15/18 10:29 DCW [id number]) Out-Patient Physical Therapy Visit Information Visit Information Visit Type Treatment Note Visit Start Time 09:45 Visit Stop Time 10:30 Total Visit Minutes 45 Visit Number 11 PT-OP-B Current Condition Start: 08/13/18 16:19 Freq: Status: Active Protocol: Document 08/13/18 16:23 EA (Rec: 08/13/18 16:51 EA [id number]) Current Condition History of Current Condition Onset Date s/p ventricular shunt 2016 due to NPH Current Complaints Gait difficulty due to LOB History of Current Condition Present complaint of gait difficulty and balance started 3 years ago with no previous history of TBI. 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 Prior to current condition, patient lives with his in a single story house with 2 stairs to get in. 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 Patient symptoms of gait disturbance and frequent falls came out gradually and that prompted patient to see his specialist. After ventrular shunt surgery in 09/2016, patient reports his gait is much improved until to this date. 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 Prior Treatments and Tests 2017: Ventricular shunt Future Testing and Treatments Planned Back to Neurologist in three months from today's date Treatment Goals Patient/Caregiver Goals Patient would like to improve his gait. 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 Functional Limitations- Mobility/Gait Limited to < 10 mins due to exhaustion. Ferquent falls with no severe injury Functional Limitations- Work/School Limitations with standing and walking activities Functional Limitations- Recreation/ None identified Hobbies PT-OP-C Subjective Start: 08/13/18 16:19 Freq: Status: Active Protocol: Document 10/15/18 09:45 DCW (Rec: 10/15/18 10:29 DCW [id number]) OP-PT Subjective Patient Comments Patient Comments Pt reports he is doing well today, feels that he has learned a lot of things to do at home. PT-OP-D Balance Start: 08/13/18 16:19 Freq: Status: Active Protocol: Document 08/13/18 16:55 EA (Rec: 08/13/18 16:59 EA [id number]) OP-PT Balance Assessment Sitting Balance Static Sitting Balance Ability Normal Dynamic Sitting Balance Ability Normal Standing Balance Static Standing Balance Ability Normal Dynamic Standing Balance Ability Good Mora Fall Scale Copyright Permission Abby BOB, Abby RM, Guillermina SJ. Development of a scale to identify the fall- prone patient. Can J Aging 1989;8;366-7. Tyshawn Mora (2009). Preventing patient falls. (2nd ed). [place]: [place]. PT-OP-E Functional Tests Start: 08/13/18 16:19 Freq: Status: Active Protocol: Document 08/13/18 16:55 EA (Rec: 08/13/18 16:59 EA [id number]) Functional Tests Timed Up and Go (TUG) Score 11 TUG Impairment Rating 1 to <20% Impaired (Score 11) PT-OP-G Mobility & Gait Start: 08/13/18 16:19 Freq: Status: Active Protocol: Document 08/13/18 16:00 EA (Rec: 08/14/18 15:12 EA [id number]) OP Gait Assessment Gait Distance (Feet) 100 Able to Maintain Weight Bearing Status Yes During Gait Assistive Devices Assistive Device None Gait Deviations General Gait Pattern Ataxic Decreased Feet Clearance Wide Based Gait Factors Limiting Gait Function Factors Limiting Gait Function Incoordination Poor Balance PT-OP-H Neuro Start: 08/13/18 16:19 Freq: Status: Active Protocol: Document 08/13/18 16:55 EA (Rec: 08/13/18 16:59 EA [id number]) Coordination Evaluation Upper Extremity Tests Right Finger to Nose Test Minimal Impairment Finger to Therapist's Finger Test Minimal Impairment Alternate Nose to Finger Test Minimal Impairment Finger Opposition Test Minimal Impairment Mass Grasp Test Minimal Impairment Pronation/Supination Test Moderate Impairment Hand Tapping Test Minimal Impairment Left Finger to Nose Test Minimal Impairment Finger to Therapist's Finger Test Minimal Impairment Finger to Finger Test Minimal Impairment Alternate Nose to Finger Test Minimal Impairment Finger Opposition Test Minimal Impairment Mass Grasp Test Minimal Impairment Pronation/Supination Test Severe Impairment Rebound Test of [place] Moderate Impairment Hand Tapping Test Minimal Impairment Pointing and Past Pointing Test Minimal Impairment Lower Extremity Tests Alternate Heel to Knee; Heel to Toe Test Moderate Impairment Heel on [place] Test Moderate Impairment Foot Tapping Test Minimal Impairment Toe to Examiner's Finger Test Minimal Impairment Drawing a Hold[place] w/Foot Test Minimal Impairment Lower Extremity Fixation/Position Minimal Impairment Holding Test Deep Tendon Reflex & Clonus Assessment Deep Tendon Reflex Bicep Deep Tendon Reflex 2+ Normal Bilateral Patellar Deep Tendon Reflex 2+ Normal PT-OP-J Posture/Palpation/Skin Start: 08/13/18 16:19 Freq: Status: Active Protocol: Document 08/13/18 16:52 EA (Rec: 08/13/18 16:55 EA [id number]) Posture Evaluation Comments Posture Comments WFL Palpation Assessment Location One Palpation Details Normotonic on both UE/LE's PT-OP-K Range of Motion Start: 08/13/18 16:19 Freq: Status: Active Protocol: Document 08/13/18 16:52 EA (Rec: 08/13/18 16:55 EA [id number]) Hip Goniometric Range of Motion Hip Measured in Degrees Right Active Hip ROM WFL Yes Left Active Hip ROM WFL Yes Knee Goniometric Range of Motion Knee Measured in Degrees Right Knee ROM WFL Yes Left Knee ROM WFL Yes PT-OP-M Strength Start: 08/13/18 16:19 Freq: Status: Active Protocol: Document 08/13/18 16:52 EA (Rec: 08/13/18 16:55 EA [id number]) Hip Strength Hip Manual Muscle Testing Right Flexion (L2) 5 Normal Extension (S1) 5 Normal Abduction 5 Normal Adduction 5 Normal External Rotation 5 Normal Internal Rotation 5 Normal Left Flexion (L2) 5 Normal Extension (S1) 5 Normal Abduction 5 Normal Adduction 5 Normal External Rotation 5 Normal Internal Rotation 5 Normal Knee Strength Knee Manual Muscle Testing Right Flexion (S2) 5 Normal Extension (L3) 5 Normal Left Flexion (S2) 5 Normal Extension (L3) 5 Normal PT-OP-Q Treatments Start: 08/13/18 16:19 Freq: Status: Active Protocol: Document 10/15/18 09:45 DCW (Rec: 10/15/18 10:28 UTW [id number]) Gym Equipment Shuttle Balance Static/dynamic balance training Details red chain Reps/Duration 12 min Comments Wide ANA (EO/EC, Ball toss), Narrow ANA, Staggered stance Therapeutic Exercises Standing Exercises 1 Standing Exercise Name Fwd lunges Side bilateral Reps/Minutes x 12 ft x 4 lines Squats Standing Exercise Name side steps squats w/ ball front pass Resistance GTB Reps/Minutes x 12 ft x 2 lines Neuro Re-Education Treatment Balance Activities 2 Details Beam: FWD, BWD, Side-Stepping Reps/Duration x 8 length Comments CGA. BWD patient PRN with rails Other Activities 4 Details Balance beam fwd steps: cone floor pick ups 3 Details Steps linsey heel to toe, side -stepping gait Reps/Duration x 4 lengths Comments hands on pocket PT-OP-T Assessment and Plan Start: 08/13/18 16:19 Freq: Status: Active Protocol: Document 10/15/18 09:45 DCW (Rec: 10/15/18 10:28 [facility] [id number]) Physical Therapy Assessment Goals Four Impairment Impaired TUG (> 10 seconds) Mixing Tank Operator Goal (LTG) TUG <10 seconds LTG Duration 4 wks Three Impairment Impaired single leg balance Half-Way Goal (LTG) Patient will perform SLS more than 3 seconds to improve functional gait. LTG Duration 5 wks Two Impairment Impaired balance with multiple falls Mixing Tank Operator Goal (LTG) Patient will have no report of fall LTG Duration 4 wks One Impairment Impaired Gait Half-Way Goal (LTG) Patient will ambulate with no AD NBOS LTG Duration 6 wks Assessment Summary Assessment Pt performed well today, able to tolerate all activities, although required assistance from rail when on balance beam . Physical Therapy Plan Frequency and Duration Frequency of Treatment 2x/Week Duration of Treatment 12 wks Plan of Care Start Date 08/13/18 Plan of Care End Date 11/05/18 Next Visit Focus/Plan Next Note Type Treatment Note Next Visit Plan Cont. with current plan.
--- NOTE | 2018-10-28 15:58 | PT.OTN ---
Current Diagnoses Communicating hydrocephalus (10/28/18) Other abnormalities of gait and mobility (10/28/18) Physical Therapy Treatment Note PT-OP-A Visit Information Start: 08/13/18 16:19 Freq: Status: Active Protocol: Document 10/28/18 15:54 EA (Rec: 10/28/18 15:58 EA [id number]) Out-Patient Physical Therapy Visit Information Visit Information Visit Type Treatment Note Visit Start Time 14:30 Visit Stop Time 15:15 Total Visit Minutes 40 Visit Number 12 PT-OP-B Current Condition Start: 08/13/18 16:19 Freq: Status: Active Protocol: Document 08/13/18 16:23 EA (Rec: 08/13/18 16:51 EA [id number]) Current Condition History of Current Condition Onset Date s/p ventricular shunt 2016 due to NPH Current Complaints Gait difficulty due to LOB History of Current Condition Present complaint of gait difficulty and balance started 3 years ago with no previous history of TBI. 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 Prior to current condition, patient lives with his in a single story house with 2 stairs to get in. 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 Patient symptoms of gait disturbance and frequent falls came out gradually and that prompted patient to see his specialist. After ventrular shunt surgery in 09/2016, patient reports his gait is much improved until to this date. 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 Prior Treatments and Tests 2017: Ventricular shunt Future Testing and Treatments Planned Back to Neurologist in three months from today's date Treatment Goals Patient/Caregiver Goals Patient would like to improve his gait. 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 Functional Limitations- Mobility/Gait Limited to < 10 mins due to exhaustion. Ferquent falls with no severe injury Functional Limitations- Work/School Limitations with standing and walking activities Functional Limitations- Recreation/ None identified Hobbies PT-OP-C Subjective Start: 03/13/19 16:19 Freq: Status: Active Protocol: Document 10/28/18 15:54 EA (Rec: 10/28/18 15:58 EA [id number]) OP-PT Subjective Patient Comments Patient Comments Pt admitted unable to perform HEP due to busy working in the field. PT-OP-D Balance Start: 08/13/18 16:19 Freq: Status: Active Protocol: Document 08/13/18 16:55 EA (Rec: 08/13/18 16:59 EA [id number]) OP-PT Balance Assessment Sitting Balance Static Sitting Balance Ability Normal Dynamic Sitting Balance Ability Normal Standing Balance Static Standing Balance Ability Normal Dynamic Standing Balance Ability Good Mora Fall Scale Copyright Permission Abby JM, Abby RM, Guillermina SJ. Development of a scale to identify the fall- prone patient. Can J Aging 1989;8;366-7. Tyshawn Mora (2009). Preventing patient falls. (2nd ed). [place]: Esc[place]. PT-OP-E Functional Tests Start: 08/13/18 16:19 Freq: Status: Active Protocol: Document 08/13/18 16:55 EA (Rec: 08/13/18 16:59 EA [id number]) Functional Tests Timed Up and Go (TUG) Score 11 TUG Impairment Rating 1 to <20% Impaired (Score 11) PT-OP-G Mobility & Gait Start: 08/13/18 16:19 Freq: Status: Active Protocol: Document 08/13/18 16:00 EA (Rec: 08/14/18 15:12 EA [id number]) OP Gait Assessment Gait Distance (Feet) 100 Able to Maintain Weight Bearing Status Yes During Gait Assistive Devices Assistive Device None Gait Deviations General Gait Pattern Ataxic Decreased Feet Clearance Wide Based Gait Factors Limiting Gait Function Factors Limiting Gait Function Incoordination Poor Balance PT-OP-H Neuro Start: 08/13/18 16:19 Freq: Status: Active Protocol: Document 08/13/18 16:55 EA (Rec: 08/13/18 16:59 EA [id number]) Coordination Evaluation Upper Extremity Tests Right Finger to Nose Test Minimal Impairment Finger to Therapist's Finger Test Minimal Impairment Alternate Nose to Finger Test Minimal Impairment Finger Opposition Test Minimal Impairment Mass Grasp Test Minimal Impairment Pronation/Supination Test Moderate Impairment Hand Tapping Test Minimal Impairment Left Finger to Nose Test Minimal Impairment Finger to Therapist's Finger Test Minimal Impairment Finger to Finger Test Minimal Impairment Alternate Nose to Finger Test Minimal Impairment Finger Opposition Test Minimal Impairment Mass Grasp Test Minimal Impairment Pronation/Supination Test Severe Impairment Rebound Test of [place] Moderate Impairment Hand Tapping Test Minimal Impairment Pointing and Past Pointing Test Minimal Impairment Lower Extremity Tests Alternate Heel to Knee; Heel to Toe Test Moderate Impairment Heel on [place] Test Moderate Impairment Foot Tapping Test Minimal Impairment Toe to Examiner's Finger Test Minimal Impairment Drawing a [employer] [facility] w/Foot Test Minimal Impairment Lower Extremity Fixation/Position Minimal Impairment Holding Test Deep Tendon Reflex & Clonus Assessment Deep Tendon Reflex Bicep Deep Tendon Reflex 2+ Normal Bilateral Patellar Deep Tendon Reflex 2+ Normal PT-OP-J Posture/Palpation/Skin Start: 08/13/18 16:19 Freq: Status: Active Protocol: Document 08/13/18 16:52 EA (Rec: 08/13/18 16:55 EA [id number]) Posture Evaluation Comments Posture Comments WFL Palpation Assessment Location One Palpation Details Normotonic on both UE/LE's PT-OP-K Range of Motion Start: 08/13/18 16:19 Freq: Status: Active Protocol: Document 08/13/18 16:52 EA (Rec: 08/13/18 16:55 EA [id number]) Hip Goniometric Range of Motion Hip Measured in Degrees Right Active Hip ROM WFL Yes Left Active Hip ROM WFL Yes Knee Goniometric Range of Motion Knee Measured in Degrees Right Knee ROM WFL Yes Left Knee ROM WFL Yes PT-OP-M Strength Start: 08/13/18 16:19 Freq: Status: Active Protocol: Document 08/13/18 16:52 EA (Rec: 08/13/18 16:55 EA [id number]) Hip Strength Hip Manual Muscle Testing Right Flexion (L2) 5 Normal Extension (S1) 5 Normal Abduction 5 Normal Adduction 5 Normal External Rotation 5 Normal Internal Rotation 5 Normal Left Flexion (L2) 5 Normal Extension (S1) 5 Normal Abduction 5 Normal Adduction 5 Normal External Rotation 5 Normal Internal Rotation 5 Normal Knee Strength Knee Manual Muscle Testing Right Flexion (S2) 5 Normal Extension (L3) 5 Normal Left Flexion (S2) 5 Normal Extension (L3) 5 Normal PT-OP-Q Treatments Start: 08/13/18 16:19 Freq: Status: Active Protocol: Document 10/28/18 15:54 EA (Rec: 10/28/18 15:58 EA [id number]) Therapeutic Exercises Standing Exercises 1 Standing Exercise Name Fwd lunges Side bilateral Reps/Minutes x 12 ft x 4 lines Squats Standing Exercise Name side steps squats w/ ball front pass Resistance GTB Reps/Minutes x 12 ft x 2 lines Neuro Re-Education Treatment Balance Activities 2 Details Beam: FWD, BWD, Side-Stepping Reps/Duration x 8 length Comments CGA. BWD patient PRN with rails 1 Details Blue foam tandem stanc Reps/Duration x 5 min Tandem walking Details fwd and backward Surface level and balance beam (bem with rail support bwd) Reps/Duration 4 lengths of 40 ft Comments cues for posture and narrowing stance SLS Details at bar Reps/Duration 20-30 x 3 each leg Comments Flat firm to blue foam Other Activities 4 Details Balance beam fwd steps: cone floor pick ups 2 Details floor squares in/out stepping fwd Reps/Duration x 6 lengths Comments coordination 1 Details Crosstepping sideways Comments x 4 lengths of 12 ft PT-OP-T Assessment and Plan Start: 08/13/18 16:19 Freq: Status: Active Protocol: Document 10/28/18 15:54 EA (Rec: 10/28/18 15:58 EA [id number]) Physical Therapy Assessment Assessment Summary Assessment Tolerated treatment well; uses arms to counter instability. Physical Therapy Plan Next Visit Focus/Plan Next Note Type Treatment Note Next Visit Plan Cont. with current plan.
--- NOTE | 2018-10-30 10:44 | PT.OTN ---
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) Other abnormalities of gait and mobility (10/30/18) Physical Therapy Treatment Note PT-OP-A Visit Information Start: 08/13/18 16:19 Freq: Status: Active Protocol: Document 10/30/18 10:28 EA (Rec: 10/30/18 10:31 EA [id number]) Out-Patient Physical Therapy Visit Information Visit Information Visit Type Treatment Note Visit Start Time 09:45 Visit Stop Time 10:30 Total Visit Minutes 45 Visit Number 13 PT-OP-B Current Condition Start: 08/13/18 16:19 Freq: Status: Active Protocol: Document 08/13/18 16:23 EA (Rec: 08/13/18 16:51 EA [id number]) Current Condition History of Current Condition Onset Date s/p ventricular shunt 2016 due to NPH Current Complaints Gait difficulty due to LOB History of Current Condition Present complaint of gait difficulty and balance started 3 years ago with no previous history of TBI. 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 Prior to current condition, patient lives with his in a single story house with 2 stairs to get in. 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 Patient symptoms of gait disturbance and frequent falls came out gradually and that prompted patient to see his specialist. After ventrular shunt surgery in 09/2016, patient reports his gait is much improved until to this date. 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 Prior Treatments and Tests 2017: Ventricular shunt Future Testing and Treatments Planned Back to Neurologist in three months from today's date Treatment Goals Patient/Caregiver Goals Patient would like to improve his gait. 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 Functional Limitations- Mobility/Gait Limited to < 10 mins due to exhaustion. Ferquent falls with no severe injury Functional Limitations- Work/School Limitations with standing and walking activities Functional Limitations- Recreation/ None identified Hobbies PT-OP-C Subjective Start: 03/13/19 16:19 Freq: Status: Active Protocol: Document 10/30/18 10:28 EA (Rec: 10/30/18 10:31 EA [id number]) OP-PT Subjective Patient Comments Patient Comments Pt reports complied with HEP; states feels improving. PT-OP-D Balance Start: 08/13/18 16:19 Freq: Status: Active Protocol: Document 08/13/18 16:55 EA (Rec: 08/13/18 16:59 EA [id number]) OP-PT Balance Assessment Sitting Balance Static Sitting Balance Ability Normal Dynamic Sitting Balance Ability Normal Standing Balance Static Standing Balance Ability Normal Dynamic Standing Balance Ability Good Mora Fall Scale Copyright Permission Abby JM, Abby RM, Guillermina SJ. Development of a scale to identify the fall- prone patient. Can J Aging 1989;8;366-7. Tyshawn Mora (2009). Preventing patient falls. (2nd ed). [place]: Escobar. PT-OP-E Functional Tests Start: 08/13/18 16:19 Freq: Status: Active Protocol: Document 08/13/18 16:55 EA (Rec: 08/13/18 16:59 EA [id number]) Functional Tests Timed Up and Go (TUG) Score 11 TUG Impairment Rating 1 to <20% Impaired (Score 11) PT-OP-G Mobility & Gait Start: 08/13/18 16:19 Freq: Status: Active Protocol: Document 08/13/18 16:00 EA (Rec: 08/14/18 15:12 EA [id number]) OP Gait Assessment Gait Distance (Feet) 100 Able to Maintain Weight Bearing Status Yes During Gait Assistive Devices Assistive Device None Gait Deviations General Gait Pattern Ataxic Decreased Feet Clearance Wide Based Gait Factors Limiting Gait Function Factors Limiting Gait Function Incoordination Poor Balance PT-OP-H Neuro Start: 08/13/18 16:19 Freq: Status: Active Protocol: Document 08/13/18 16:55 EA (Rec: 08/13/18 16:59 EA [id number]) Coordination Evaluation Upper Extremity Tests Right Finger to Nose Test Minimal Impairment Finger to Therapist's Finger Test Minimal Impairment Alternate Nose to Finger Test Minimal Impairment Finger Opposition Test Minimal Impairment Mass Grasp Test Minimal Impairment Pronation/Supination Test Moderate Impairment Hand Tapping Test Minimal Impairment Left Finger to Nose Test Minimal Impairment Finger to Therapist's Finger Test Minimal Impairment Finger to Finger Test Minimal Impairment Alternate Nose to Finger Test Minimal Impairment Finger Opposition Test Minimal Impairment Mass Grasp Test Minimal Impairment Pronation/Supination Test Severe Impairment Rebound Test of [place] Moderate Impairment Hand Tapping Test Minimal Impairment Pointing and Past Pointing Test Minimal Impairment Lower Extremity Tests Alternate Heel to Knee; Heel to Toe Test Moderate Impairment Heel on [place] Test Moderate Impairment Foot Tapping Test Minimal Impairment Toe to Examiner's Finger Test Minimal Impairment Drawing a [place] w/Foot Test Minimal Impairment Lower Extremity Fixation/Position Minimal Impairment Holding Test Deep Tendon Reflex & Clonus Assessment Deep Tendon Reflex Bicep Deep Tendon Reflex 2+ Normal Bilateral Patellar Deep Tendon Reflex 2+ Normal PT-OP-J Posture/Palpation/Skin Start: 08/13/18 16:19 Freq: Status: Active Protocol: Document 08/13/18 16:52 EA (Rec: 08/13/18 16:55 EA [id number]) Posture Evaluation Comments Posture Comments WFL Palpation Assessment Location One Palpation Details Normotonic on both UE/LE's PT-OP-K Range of Motion Start: 08/13/18 16:19 Freq: Status: Active Protocol: Document 08/13/18 16:52 EA (Rec: 08/13/18 16:55 EA [id number]) Hip Goniometric Range of Motion Hip Measured in Degrees Right Active Hip ROM WFL Yes Left Active Hip ROM WFL Yes Knee Goniometric Range of Motion Knee Measured in Degrees Right Knee ROM WFL Yes Left Knee ROM WFL Yes PT-OP-M Strength Start: 08/13/18 16:19 Freq: Status: Active Protocol: Document 08/13/18 16:52 EA (Rec: 08/13/18 16:55 EA [id number]) Hip Strength Hip Manual Muscle Testing Right Flexion (L2) 5 Normal Extension (S1) 5 Normal Abduction 5 Normal Adduction 5 Normal External Rotation 5 Normal Internal Rotation 5 Normal Left Flexion (L2) 5 Normal Extension (S1) 5 Normal Abduction 5 Normal Adduction 5 Normal External Rotation 5 Normal Internal Rotation 5 Normal Knee Strength Knee Manual Muscle Testing Right Flexion (S2) 5 Normal Extension (L3) 5 Normal Left Flexion (S2) 5 Normal Extension (L3) 5 Normal PT-OP-Q Treatments Start: 08/13/18 16:19 Freq: Status: Active Protocol: Document 10/30/18 10:28 EA (Rec: 10/30/18 10:31 EA [id number]) Therapeutic Exercises Standing Exercises 1 Standing Exercise Name Fwd lunges Side bilateral Reps/Minutes x 12 ft x 4 lines each stages Comments over hurdles; with dynmic trunk rotation Squats Standing Exercise Name side steps squats w/ ball front pass Resistance GTB Reps/Minutes x 12 ft x 2 lines Neuro Re-Education Treatment Balance Activities 2 Details Beam: FWD, BWD, Side-Stepping Reps/Duration x 8 length Comments CGA. BWD patient PRN with rails 1 Details Blue foam tandem stanc Reps/Duration x 5 min Tandem walking Details fwd and backward Surface level and balance beam (bem with rail support bwd) Reps/Duration 4 lengths of 40 ft Comments cues for posture and narrowing stance SLS Details at bar Reps/Duration 20-30 x 3 each leg Comments Flat firm to blue foam Other Activities 4 Details Balance beam fwd steps: cone floor pick ups 3 Details Steps linsey heel to toe, side -stepping gait Reps/Duration x 4 lengths Comments hands on pocket 2 Details floor squares in/out stepping fwd Reps/Duration x 6 lengths Comments coordination 1 Details Crosstepping sideways Comments x 4 lengths of 12 ft Heel strike gait Reps/Duration 6 lengths of rails Comments Focus on WBing through heel, exaggerated heel strike, narrow base. PT-OP-T Assessment and Plan Start: 08/13/18 16:19 Freq: Status: Active Protocol: Document 10/30/18 10:28 MAMADOU (Rec: 10/30/18 10:31 EA [id number]) Physical Therapy Assessment Assessment Summary Assessment Improved dynamic trunk rotation with fwd lunges. Physical Therapy Plan Next Visit Focus/Plan Next Note Type Treatment Note Next Visit Plan Cont. with current plan.
--- NOTE | 2018-11-04 13:43 | PT.OTN ---
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) Other abnormalities of gait and mobility (11/04/18) Physical Therapy Treatment Note PT-OP-A Visit Information Start: 08/13/18 16:19 Freq: Status: Active Protocol: Document 11/04/18 12:59 EA (Rec: 11/04/18 13:03 EA [id number]) Out-Patient Physical Therapy Visit Information Visit Information Visit Type Treatment Note Visit Start Time 12:15 Visit Stop Time 13:00 Total Visit Minutes 45 Visit Number 14 PT-OP-B Current Condition Start: 08/13/18 16:19 Freq: Status: Active Protocol: Document 08/13/18 16:23 EA (Rec: 08/13/18 16:51 EA [id number]) Current Condition History of Current Condition Onset Date s/p ventricular shunt 2016 due to NPH Current Complaints Gait difficulty due to LOB History of Current Condition Present complaint of gait difficulty and balance started 3 years ago with no previous history of TBI. 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 Prior to current condition, patient lives with his in a single story house with 2 stairs to get in. 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 Patient symptoms of gait disturbance and frequent falls came out gradually and that prompted patient to see his specialist. After ventrular shunt surgery in 09/2016, patient reports his gait is much improved until to this date. 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 Prior Treatments and Tests 2017: Ventricular shunt Future Testing and Treatments Planned Back to Neurologist in three months from today's date Treatment Goals Patient/Caregiver Goals Patient would like to improve his gait. 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 Functional Limitations- Mobility/Gait Limited to < 10 mins due to exhaustion. Ferquent falls with no severe injury Functional Limitations- Work/School Limitations with standing and walking activities Functional Limitations- Recreation/ None identified Hobbies PT-OP-C Subjective Start: 03/13/19 16:19 Freq: Status: Active Protocol: Document 11/04/18 12:59 EA (Rec: 11/04/18 13:03 EA [id number]) OP-PT Subjective Patient Comments Patient Comments I have been doing balance exercises at home; dnies falls and reports consistent with usual active work. PT-OP-D Balance Start: 08/13/18 16:19 Freq: Status: Active Protocol: Document 08/13/18 16:55 EA (Rec: 08/13/18 16:59 EA [id number]) OP-PT Balance Assessment Sitting Balance Static Sitting Balance Ability Normal Dynamic Sitting Balance Ability Normal Standing Balance Static Standing Balance Ability Normal Dynamic Standing Balance Ability Good Mora Fall Scale Copyright Permission Abby JM, Abby RM, Guillermina SJ. Development of a scale to identify the fall- prone patient. Can J Aging 1989;8;366-7. Tyshawn Mora (2009). Preventing patient falls. (2nd ed). [place]: Escobar. PT-OP-E Functional Tests Start: 08/13/18 16:19 Freq: Status: Active Protocol: Document 11/04/18 13:30 EA (Rec: 11/04/18 13:30 EA [id number]) Functional Tests Dynamic Gait Index (DGI) Score 20 DGI Impairment Rating 1 to <20% Impaired (Score 20- 23) Functional Gait Assessment Score 20 Timed Up and Go (TUG) Score 7 TUG Impairment Rating 0% Impaired (Score 10) PT-OP-G Mobility & Gait Start: 08/13/18 16:19 Freq: Status: Active Protocol: Document 08/13/18 16:00 EA (Rec: 08/14/18 15:12 EA [id number]) OP Gait Assessment Gait Distance (Feet) 100 Able to Maintain Weight Bearing Status Yes During Gait Assistive Devices Assistive Device None Gait Deviations General Gait Pattern Ataxic Decreased Feet Clearance Wide Based Gait Factors Limiting Gait Function Factors Limiting Gait Function Incoordination Poor Balance PT-OP-H Neuro Start: 08/13/18 16:19 Freq: Status: Active Protocol: Document 08/13/18 16:55 EA (Rec: 08/13/18 16:59 EA [id number]) Coordination Evaluation Upper Extremity Tests Right Finger to Nose Test Minimal Impairment Finger to Therapist's Finger Test Minimal Impairment Alternate Nose to Finger Test Minimal Impairment Finger Opposition Test Minimal Impairment Mass Grasp Test Minimal Impairment Pronation/Supination Test Moderate Impairment Hand Tapping Test Minimal Impairment Left Finger to Nose Test Minimal Impairment Finger to Therapist's Finger Test Minimal Impairment Finger to Finger Test Minimal Impairment Alternate Nose to Finger Test Minimal Impairment Finger Opposition Test Minimal Impairment Mass Grasp Test Minimal Impairment Pronation/Supination Test Severe Impairment Rebound Test of [place] Moderate Impairment Hand Tapping Test Minimal Impairment Pointing and Past Pointing Test Minimal Impairment Lower Extremity Tests Alternate Heel to Knee; Heel to Toe Test Moderate Impairment Heel on [place] Test Moderate Impairment Foot Tapping Test Minimal Impairment Toe to Examiner's Finger Test Minimal Impairment Drawing a [place] w/Foot Test Minimal Impairment Lower Extremity Fixation/Position Minimal Impairment Holding Test Deep Tendon Reflex & Clonus Assessment Deep Tendon Reflex Bicep Deep Tendon Reflex 2+ Normal Bilateral Patellar Deep Tendon Reflex 2+ Normal PT-OP-J Posture/Palpation/Skin Start: 08/13/18 16:19 Freq: Status: Active Protocol: Document 08/13/18 16:52 EA (Rec: 08/13/18 16:55 EA [id number]) Posture Evaluation Comments Posture Comments WFL Palpation Assessment Location One Palpation Details Normotonic on both UE/LE's PT-OP-K Range of Motion Start: 08/13/18 16:19 Freq: Status: Active Protocol: Document 08/13/18 16:52 EA (Rec: 08/13/18 16:55 EA [id number]) Hip Goniometric Range of Motion Hip Measured in Degrees Right Active Hip ROM WFL Yes Left Active Hip ROM WFL Yes Knee Goniometric Range of Motion Knee Measured in Degrees Right Knee ROM WFL Yes Left Knee ROM WFL Yes PT-OP-M Strength Start: 08/13/18 16:19 Freq: Status: Active Protocol: Document 08/13/18 16:52 EA (Rec: 08/13/18 16:55 EA [id number]) Hip Strength Hip Manual Muscle Testing Right Flexion (L2) 5 Normal Extension (S1) 5 Normal Abduction 5 Normal Adduction 5 Normal External Rotation 5 Normal Internal Rotation 5 Normal Left Flexion (L2) 5 Normal Extension (S1) 5 Normal Abduction 5 Normal Adduction 5 Normal External Rotation 5 Normal Internal Rotation 5 Normal Knee Strength Knee Manual Muscle Testing Right Flexion (S2) 5 Normal Extension (L3) 5 Normal Left Flexion (S2) 5 Normal Extension (L3) 5 Normal PT-OP-Q Treatments Start: 08/13/18 16:19 Freq: Status: Active Protocol: Document 11/04/18 12:59 EA (Rec: 11/04/18 13:03 EA [id number]) Therapeutic Exercises Standing Exercises 1 Standing Exercise Name Fwd lunges Side bilateral Reps/Minutes x 12 ft x 4 lines each stages Comments over hurdles; with dynmic trunk rotation Toe rasies Side bilateral Reps/Minutes 20x Comments with out support Neuro Re-Education Treatment Balance Activities 2 Details Beam: FWD, BWD, Side-Stepping Reps/Duration x 8 length Comments CGA. BWD patient PRN with rails Tandem walking Details fwd and backward Surface level and balance beam (bem with rail support bwd) Reps/Duration 4 lengths of 40 ft Comments cues for posture and narrowing stance SLS Details at bar Reps/Duration 20-30 x 3 each leg Coordination Activities 1 Details Floor square side step in and out Comments slow to faster looking to no looking to ball throwing. Other Activities 3 Details Steps linsey heel to toe, side -stepping gait Reps/Duration x 4 lengths Comments hands on pocket 1 Details Crosstepping sideways Comments x 4 lengths of 12 ft PT-OP-T Assessment and Plan Start: 08/13/18 16:19 Freq: Status: Active Protocol: Document 11/04/18 13:05 EA (Rec: 11/04/18 13:08 EA [id number]) Physical Therapy Assessment Rehab Potential Rehabilitation Potential Good Impairments Impairments Coordination Gait Soft Tissue Mobility Goals Five Impairment Shuffling gait with mild ataxic Hospitality Ambassador Goal (LTG) Patient will ambulate with less ataxic and only ocassional shuffling LTG Duration 5 wks Four Impairment Impaired TUG (> 10 seconds) Hospitality Ambassador Goal (LTG) TUG <10 seconds LTG Duration 4 wks goal reached Three Impairment Impaired single leg balance Fci Goal (LTG) Patient will perform SLS more than 3 seconds to improve functional gait. LTG Duration 5 wks (Goal reached) Two Impairment Impaired balance with multiple falls Fci Goal (LTG) Patient will have no report of fall LTG Duration 4 wks Goal reached One Impairment Impaired Gait Hospitality Ambassador Goal (LTG) Patient will ambulate with no AD NBOS LTG Duration 6 wks ( Improving) Progress Towards Goals Progress Towards Goals Progressing Toward Goals Assessment Summary Assessment Improved balance and gait noted with no reports of falls in the past 3 months. Overall functional tests reveals low risk of fall at this time. However, less frequent gait incoordination noted and mostly with turning. In my professional opinion, patient would still continue to benefit with skilled PT with more focus of improving gait and coordination. He is good to decrease Pt session to once a week. Physical Therapy Plan Frequency and Duration Frequency of Treatment 1x/Week Duration of Treatment 8 wks Plan of Care Start Date 11/04/18 Plan of Care End Date 12/30/18 Therapeutic Interventions Therapeutic Interventions Coordination Training Gait Training Home Exercise Program Neuromuscular Re-education Self-Care/Home Management Soft Tissue Mobilization Therapeutic Exercises Next Visit Focus/Plan Next Note Type Treatment Note Next Visit Plan standing dynamic coordination focus, dynamic turning exercises.
--- NOTE | 2018-11-04 13:43 | PT.OPPOC ---
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) Other abnormalities of gait and mobility (11/04/18) Provider Visit Care Team Role Provider Type Win Ho Attending Provider Non-Staff Primary Care Provider Specialty: Psychiatry Address: [address] [place] [address], [facility] Email: Plan Of Care PT-OP-T Assessment and Plan Start: 08/13/18 16:19 Freq: Status: Active Protocol: Document 11/04/18 13:05 MAMADOU (Rec: 11/04/18 13:08 MAMADOU [id number]) Physical Therapy Assessment Rehab Potential Rehabilitation Potential Good Impairments Impairments Coordination Gait Soft Tissue Mobility Goals Five Impairment Shuffling gait with mild ataxic Snf Goal (LTG) Patient will ambulate with less ataxic and only ocassional shuffling LTG Duration 5 wks Four Impairment Impaired TUG (> 10 seconds) Equine Breeder Goal (LTG) TUG <10 seconds LTG Duration 4 wks goal reached Three Impairment Impaired single leg balance Snf Goal (LTG) Patient will perform SLS more than 3 seconds to improve functional gait. LTG Duration 5 wks (Goal reached) Two Impairment Impaired balance with multiple falls Snf Goal (LTG) Patient will have no report of fall LTG Duration 4 wks Goal reached One Impairment Impaired Gait Equine Breeder Goal (LTG) Patient will ambulate with no AD NBOS LTG Duration 6 wks ( Improving) Progress Towards Goals Progress Towards Goals Progressing Toward Goals Assessment Summary Assessment Improved balance and gait noted with no reports of falls in the past 3 months. Overall functional tests reveals low risk of fall at this time. However, less frequent gait incoordination noted and mostly with turning. In my professional opinion, patient would still continue to benefit with skilled PT with more focus of improving gait and coordination. He is good to decrease Pt session to once a week. Physical Therapy Plan Frequency and Duration Frequency of Treatment 1x/Week Duration of Treatment 8 wks Plan of Care Start Date 11/04/18 Plan of Care End Date 12/30/18 Therapeutic Interventions Therapeutic Interventions Coordination Training Gait Training Home Exercise Program Neuromuscular Re-education Self-Care/Home Management Soft Tissue Mobilization Therapeutic Exercises Next Visit Focus/Plan Next Note Type Treatment Note Next Visit Plan standing dynamic coordination focus, dynamic turning exercises. Plan of Care Dates Plan of Care Start Date 11/04/18 Plan of Care End Date 12/30/18 Please Sign and Return: I have reviewed this Plan of Care and certify that the skilled therapy services above are required to meet the patient?s needs. Physician Signature Date Printed Name and Credentials Clinical Instructor Signature Printed Name and Credentials
--- NOTE | 2019-01-26 16:45 | PT.OPDS ---
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) Other abnormalities of gait and mobility (11/04/18) Provider Visit Care Team Role Provider Type Win Ho Attending Provider Non-Staff Primary Care Provider Specialty: Psychiatry Address: [address] [place] [address], [facility] Email: Visit Number Visit Number 14 Discharge Summary PT-OP-B Current Condition Start: 08/13/18 16:19 Freq: Status: Active Protocol: Document 08/13/18 16:23 EA (Rec: 08/13/18 16:51 EA [id number]) Current Condition History of Current Condition Onset Date s/p ventricular shunt 2016 due to NPH Current Complaints Gait difficulty due to LOB History of Current Condition Present complaint of gait difficulty and balance started 3 years ago with no previous history of TBI. 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 Prior to current condition, patient lives with his in a single story house with 2 stairs to get in. 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 Patient symptoms of gait disturbance and frequent falls came out gradually and that prompted patient to see his specialist. After ventrular shunt surgery in 09/2016, patient reports his gait is much improved until to this date. 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 Prior Treatments and Tests 2017: Ventricular shunt Future Testing and Treatments Planned Back to Neurologist in three months from today's date Treatment Goals Patient/Caregiver Goals Patient would like to improve his gait. 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 Functional Limitations- Mobility/Gait Limited to < 10 mins due to exhaustion. Ferquent falls with no severe injury Functional Limitations- Work/School Limitations with standing and walking activities Functional Limitations- Recreation/ None identified Hobbies PT-OP-C Subjective Start: 08/13/18 16:19 Freq: Status: Active Protocol: Document 01/26/19 16:43 EA (Rec: 01/26/19 16:45 EA [id number]) OP-PT Subjective Patient Comments Patient Comments Spoke to patient by phone and would like to discharge in PT; states he has been busy most of the time. PT-OP-D Balance Start: 08/13/18 16:19 Freq: Status: Active Protocol: Document 08/13/18 16:55 EA (Rec: 08/13/18 16:59 EA [id number]) OP-PT Balance Assessment Sitting Balance Static Sitting Balance Ability Normal Dynamic Sitting Balance Ability Normal Standing Balance Static Standing Balance Ability Normal Dynamic Standing Balance Ability Good Mora Fall Scale Copyright Permission PT-OP-E Functional Tests Start: 08/13/18 16:19 Freq: Status: Active Protocol: Document 11/04/18 13:30 EA (Rec: 11/04/18 13:30 EA [id number]) Functional Tests Dynamic Gait Index (DGI) Score 20 DGI Impairment Rating 1 to <20% Impaired (Score 20- 23) Functional Gait Assessment Score 20 Timed Up and Go (TUG) Score 7 TUG Impairment Rating 0% Impaired (Score 10) PT-OP-G Mobility & Gait Start: 08/13/18 16:19 Freq: Status: Active Protocol: Document 08/13/18 16:00 EA (Rec: 08/14/18 15:12 EA [id number]) OP Gait Assessment Gait Distance (Feet) 100 Able to Maintain Weight Bearing Status Yes During Gait Assistive Devices Assistive Device None Gait Deviations General Gait Pattern Ataxic Decreased Feet Clearance Wide Based Gait Factors Limiting Gait Function Factors Limiting Gait Function Incoordination Poor Balance PT-OP-H Neuro Start: 08/13/18 16:19 Freq: Status: Active Protocol: Document 08/13/18 16:55 EA (Rec: 08/13/18 16:59 EA [id number]) Coordination Evaluation Upper Extremity Tests Right Finger to Nose Test Minimal Impairment Finger to Therapist's Finger Test Minimal Impairment Alternate Nose to Finger Test Minimal Impairment Finger Opposition Test Minimal Impairment Mass Grasp Test Minimal Impairment Pronation/Supination Test Moderate Impairment Hand Tapping Test Minimal Impairment Left Finger to Nose Test Minimal Impairment Finger to Therapist's Finger Test Minimal Impairment Finger to Finger Test Minimal Impairment Alternate Nose to Finger Test Minimal Impairment Finger Opposition Test Minimal Impairment Mass Grasp Test Minimal Impairment Pronation/Supination Test Severe Impairment Rebound Test of Rene Moderate Impairment Hand Tapping Test Minimal Impairment Pointing and Past Pointing Test Minimal Impairment Lower Extremity Tests Alternate Heel to Knee; Heel to Toe Test Moderate Impairment Heel on Kunz Test Moderate Impairment Foot Tapping Test Minimal Impairment Toe to Examiner's Finger Test Minimal Impairment Drawing a [place] Meter w/Foot Test Minimal Impairment Lower Extremity Fixation/Position Minimal Impairment Holding Test Deep Tendon Reflex & Clonus Assessment Deep Tendon Reflex Bicep Deep Tendon Reflex 2+ Normal Bilateral Patellar Deep Tendon Reflex 2+ Normal PT-OP-J Posture/Palpation/Skin Start: 08/13/18 16:19 Freq: Status: Active Protocol: Document 08/13/18 16:52 EA (Rec: 08/13/18 16:55 EA [id number]) Posture Evaluation Comments Posture Comments WFL Palpation Assessment Location One Palpation Details Normotonic on both UE/LE's PT-OP-K Range of Motion Start: 08/13/18 16:19 Freq: Status: Active Protocol: Document 08/13/18 16:52 EA (Rec: 08/13/18 16:55 EA [id number]) Hip Goniometric Range of Motion Hip Right Active Hip ROM WFL Yes Left Active Hip ROM WFL Yes Knee Goniometric Range of Motion Knee Right Knee ROM WFL Yes Left Knee ROM WFL Yes PT-OP-M Strength Start: 08/13/18 16:19 Freq: Status: Active Protocol: Document 08/13/18 16:52 EA (Rec: 08/13/18 16:55 EA [id number]) Hip Strength Hip Manual Muscle Testing Right Flexion (L2) 5 Normal Extension (S1) 5 Normal Abduction 5 Normal Adduction 5 Normal External Rotation 5 Normal Internal Rotation 5 Normal Left Flexion (L2) 5 Normal Extension (S1) 5 Normal Abduction 5 Normal Adduction 5 Normal External Rotation 5 Normal Internal Rotation 5 Normal Knee Strength Knee Manual Muscle Testing Right Flexion (S2) 5 Normal Extension (L3) 5 Normal Left Flexion (S2) 5 Normal Extension (L3) 5 Normal PT-OP-T Assessment and Plan Start: 08/13/18 16:19 Freq: Status: Active Protocol: Document 01/26/19 16:43 EA (Rec: 01/26/19 16:45 EA [id number]) Physical Therapy Assessment Assessment Summary Assessment Discharge to PT per patient request. Physical Therapy Plan Discharge Physical Therapy Discharge Reasons Patient Request
== END 2019-01-30 09:17 | disposition home or self-care (01) ==
LOC: PHYS 12:15
PROVIDERS: PCP Psychiatry & Neurology Neurology; Visit Provider Psychiatry & Neurology Neurology
DX: R26.89 Other abnormalities of gait and mobility (principal); G91.0 Communicating hydrocephalus
CPT/HCPCS: 97110; 97112; 97162; 97535